=== PATIENT | male | born 1985 | race Caucasian/White ===

== ENCOUNTER 2016-12-02 21:35 | Inpatient (IN) | payer SELFPAY ==
[2016-12-02] MEDS ORDERED: METHYLPREDNISOLONE INJ 125 MG/2 ML SDV IV ONE (21:45)
[2016-12-02] MEDS ORDERED: IPRATROPIUM/ALBUTEROL 0.5-2.5 MG/3 ML AMPUL NEB ONE ×3 (21:45→23:10)
[2016-12-02] MEDS ORDERED: METHYLPREDNISOLONE INJ 125 MG/2 ML SDV ONE (21:46)
--- NOTE | 2016-12-02 21:49 | ER Document Report ---
ED General - General Stated Complaint: DIFFICULTY BREATHING Time seen by provider: 21:48 Mode of Arrival: Medic Information source: Patient Notes: This is a 31-year-old man with COPD who was brought in by EMS because of shortness of breath and wheezing. TRAVEL OUTSIDE OF THE [place] IN LAST 30 DAYS: No - HPI Onset: Yesterday Onset/Duration: Gradual Quality of pain: Dull Severity: Mild Pain Level: 1 Associated symptoms: Nonproductive cough, Shortness of breath. denies: Fever Exacerbated by: Movement, Walking Relieved by: Remaining still Similar symptoms previously: Yes Recently seen / treated by doctor: No - Related Data Allergies/Adverse Reactions: ketorolac tromethamine [From Toradol] Allergy (Verified 12/02/16 22:15) sulfamethoxazole [From Bactrim] Allergy (Verified 12/02/16 22:15) tramadol [Tramadol] Allergy (Verified 12/02/16 22:15) trimethoprim [From Bactrim] Allergy (Verified 12/02/16 22:15) methocarbamol [From Robaxin] Adverse Reaction (Verified 12/02/16 22:15) Hives Home Medications: Current Home Medications No Home Medications 12/02/16 [History] Past Medical History - General Information source: Patient - Social History Smoking Status: Former Smoker Cigarette use (# per day): No - patient states he quit Chew tobacco use (# tins/day): No Smoking Education Provided: No Frequency of alcohol use: None Drug Abuse: None Lives with: Alone Family History: Reviewed & Not Pertinent Patient has suicidal ideation: No Patient has homicidal ideation: No - Past Medical History Cardiac Medical History: Reports: Hx Heart Attack Neurological Medical History: Reports: Hx Cerebrovascular Accident Renal/ Medical History: Reports: Hx Kidney Stones - Immunizations Hx Diphtheria, Pertussis, Tetanus Vaccination: No Review of Systems - Review of Systems Notes: Review of systems: Constitutional: Denies fever, chills. EENT: Denies ear pain, sinus tenderness, throat pain, throat swelling. Cardiovascular: Denies chest pain, palpitations, dyspnea or edema. Respiratory: See H&P Abdomen: Denies abdominal pain, nausea, vomiting, diarrhea. Denies BRBPR or melena. Genitourinary: Denies dysuria, pyuria, hematuria, flank pain. Musculoskeletal: denies joint pain or swelling, denies back pain. Neurologic: Denies headache, photophobia, neck stiffness, weakness. Denies loss of bowel or bladder function. Denies saddle anesthesia. Skin: Denies rash, lesions. Physical Exam - Vital signs Vitals: Resp 18 12/02/16 21:35 Notes: Physical exam: GENERAL: 31-year-old man, alert and oriented 3, no acute distress HEAD: Atraumatic, normocephalic. EYES: Pupils equal round and reactive to light, extraocular movements intact, sclera anicteric, conjunctiva are normal. ENT: TMs normal, nares patent, oropharynx clear without exudates. Moist mucous membranes. NECK: Normal range of motion, supple without lymphadenopathy or JVD. LUNGS: Bilateral wheezing HEART: Regular rate and rhythm without murmurs, rubs or gallops. ABDOMEN: Soft, normoactive bowel sounds. No tenderness to palpation. No guarding, no rebound. No masses appreciated. EXTREMITIES: Normal range of motion, no pitting or edema. No clubbing or cyanosis. NEUROLOGICAL: Cranial nerves II through XII grossly intact. Normal speech, normal gait. PSYCH: Normal mood, normal affect. SKIN: Warm, Dry, normal turgor, no rashes or lesions noted. Course - Vital Signs Vital signs: Temp Pulse Resp BP Pulse Ox 99.1 F 24 H 142/82 H 96 12/02/16 21:43 12/02/16 22:01 12/02/16 22:00 12/02/16 22:01 - Laboratory Result Diagrams: 12/02/16 21:51 12/02/16 21:51 Laboratory results interpreted by me: 12/02/16 12/02/16 21:51 21:51 WBC 16.7 H Seg Neutrophils % 82.7 H Lymphocytes % 6.0 L Absolute Neutrophils 13.8 H Chloride 108 H Carbon Dioxide 20 L Glucose 118 H - Diagnostic Test Radiology reviewed: Image reviewed, Reports reviewed - This x-ray shows no infiltrates - EKG Interpretation by Me Rate: Tachycardia - EKG shows sinus tachycardia without any acute ST-T wave changes. Critical Care Note - Critical Care Note Total time excluding time spent on procedures (mins): 60 Discharge - Discharge Clinical Impression: acute COPD exacerbation Condition: Serious Disposition: ADMITTED INPATIENT Admitting Provider: Hospitalist - Dr. Tabares Unit Admitted: [facility]
[2016-12-02 22:02] LABS: ABSOLUTE BASOPHILS # (AUTO) 0.1 10^3/uL (0.0-0.2); ABSOLUTE EOSINOPHILS # (AUTO) 0.6 10^3/uL (0.0-0.6); ABSOLUTE MONOCYTES (AUTO) 1.2 10^3/uL (0.1-1.4); ABSOLUTE NEUT (AUTO) 13.8 10^3/uL (1.7-8.2); BASOPHILS % (AUTO) 0.4 % (0-2); EOSINOPHILS % (AUTO) 3.4 % (0-6); HEMATOCRIT 41.6 % (37.9-51.0); HEMOGLOBIN 14.4 g/dL (13.5-17.0); HGB HCT DIFFERENCE 1.6; MEAN CORPUSCULAR HEMOGLOBIN 31.2 pg (27.0-33.4); MEAN CORPUSCULAR HGB CONC 34.6 g/dL (32.0-36.0); MEAN CORPUSCULAR VOLUME 90 fl (80-97); MONOCYTES % (AUTO) 7.5 % (3-13); RED BLOOD COUNT 4.61 10^6/uL (4.35-5.55); RED CELL DISTRIBUTION WIDTH 13.8 % (11.5-14.0); SEGMENTED NEUTROPHILS % (AUTO) 82.7 % (42-78); WHITE BLOOD COUNT 16.7 10^3/uL (4.0-10.5)
[2016-12-02 22:27] LABS: ALANINE AMINOTRANSFERASE 59 U/L (21-72); ALBUMIN 4.1 g/dL (3.5-5.0); ALKALINE PHOSPHATASE 66 U/L (38-126); ANION GAP 14 (5-19); ASPARTATE AMINO TRANSFERASE 38 U/L (17-59); BILIRUBIN,DIRECT 0.3 mg/dL (0.0-0.4); BILIRUBIN,TOTAL 0.6 mg/dL (0.2-1.3); BLOOD UREA NITROGEN 13 mg/dL (7-20); CALCIUM 9.7 mg/dL (8.4-10.2); CARBON DIOXIDE 20 mmol/L (22-30); CHLORIDE 108 mmol/L (98-107); CREATININE RESULT 0.85 mg/dL (0.52-1.25); GLUCOSE 118 mg/dL (75-110); POTASSIUM 4.1 mmol/L (3.6-5.0); SODIUM 141.9 mmol/L (137-145); TOTAL PROTEIN 6.8 g/dL (6.3-8.2)
[2016-12-02] MEDS ORDERED: ALBUTEROL SULFATE 0.083% NEB 2.5 MG/3 ML AMPUL NEB ONE (22:45)
[2016-12-02] MEDS ORDERED: MAGNESIUM SULFATE/D5W 100 ML IV ONE (23:28)
[2016-12-02] MEDS ORDERED: CEFTRIAXONE 1 GM/D5W RTU 50 ML IV ONE (23:28)
[2016-12-02] MEDS ORDERED: ACETAMINOPHEN 325 MG TABLET PO ONE (23:39)
--- NOTE | 2016-12-02 23:56 | EKG REPORT ---
SEVERITY:- BORDERLINE ECG - SINUS TACHYCARDIA BORDERLINE LEFT AXIS DEVIATION BORDERLINE INFERIOR Q WAVES : Confirmed by: Sindy Díaz 02-Dec-2016 23:55:46
[2016-12-03] MEDS ORDERED: NICOTINE 7 MG/24 HR PATCH.TD24 TD PRN (01:57)
[2016-12-03] MEDS ORDERED: GUAIFENESIN SYRP 200 MG/10 ML UDC PO PRN (02:01)
[2016-12-03 02:14] LABS: ADD ON TESTING BLD IN LAB ACKNOWLEDGE
[2016-12-03] MEDS ORDERED: NORMAL SALINE 1000 ML 2,000 ML IV ONE (02:15)
[2016-12-03] MEDS ORDERED: AZITHROMYCIN INJ 500 MG VIAL IV PRN (02:21)
[2016-12-03 02:28] LABS: CREATINE KINASE 63 U/L (55-170); MAGNESIUM 2.1 mg/dL (1.6-2.3)
[2016-12-03 02:29] LABS: ALCOHOL < 10 mg/dL (NONE DETECTED)
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
[2016-12-03 02:36] LABS: VENOUS BLOOD BASE EXCESS -1.4 mmol/L; VENOUS BLOOD HCO3 24.2 mmol/L (20-32); VENOUS BLOOD PCO2 43.9 mmHg (35-63); VENOUS BLOOD PH 7.36 (7.30-7.42)
[2016-12-03 02:41] LABS: CREATINE KINASE MB 0.53 ng/mL (<4.55)
[2016-12-03 02:45] LABS: PROTHROMBIN TIME 12.5 SEC (11.4-15.4)
[2016-12-03 02:46] LABS: PARTIAL THROMBOPLASTIN TIME 28.2 SEC (23.5-35.8)
[2016-12-03 02:47] LABS: TROPONIN I < 0.012 ng/mL
[2016-12-03 03:46] LABS: URINE BARBITURATES SCREEN NEGATIVE; URINE METHADONE SCREEN NEGATIVE; URINE OPIATES LOW NEGATIVE; URINE PHENCYCLIDINE SCREEN NEGATIVE
[2016-12-03] MEDS: AZITHROMYCIN 500 MG in DEXTROSE 5%-WATER 250 ML IV SCH (04:24)
[2016-12-03] MEDS ORDERED: NORMAL SALINE 1000 ML 1,000 ML IV PRN (04:27)
[2016-12-03] MEDS: ALBUTEROL SULFATE 0.083% NEB 2.5 MG/3 ML AMPUL NEB PRN ×3 (04:36→23:26)
[2016-12-03 05:00] LABS: HEMATOCRIT 43.2 % (37.9-51.0); HEMOGLOBIN 14.6 g/dL (13.5-17.0); HGB HCT DIFFERENCE 0.6; MEAN CORPUSCULAR HEMOGLOBIN 30.9 pg (27.0-33.4); MEAN CORPUSCULAR HGB CONC 33.8 g/dL (32.0-36.0); MEAN CORPUSCULAR VOLUME 92 fl (80-97); RED BLOOD COUNT 4.72 10^6/uL (4.35-5.55); WHITE BLOOD COUNT 15.3 10^3/uL (4.0-10.5)
[2016-12-03 05:16] LABS: BLOOD UREA NITROGEN 12 mg/dL (7-20); CALCIUM 9.7 mg/dL (8.4-10.2); CARBON DIOXIDE 20 mmol/L (22-30); CHLORIDE 107 mmol/L (98-107); CREATININE RESULT 0.82 mg/dL (0.52-1.25); GLUCOSE 134 mg/dL (75-110); POTASSIUM 4.6 mmol/L (3.6-5.0)
[2016-12-03 05:25] LABS: ANION GAP 13 (5-19); SODIUM 140.3 mmol/L (137-145)
[2016-12-03 05:28] LABS: BASOPHILS % (MANUAL) 0 % (0-2); EOSINOPHILS % (MANUAL) 0 % (0-6); LYMPHOCYTES % (MANUAL) 4 % (13-45); TOTAL CELLS COUNTED 100
[2016-12-03 05:29] LABS: RBC MORPHOLOGY COMMENT NORMO-CYTIC/CHROMIC; TOXIC GRANULATION SLIGHT
[2016-12-03] MEDS: LANSOPRAZOLE 30 MG TAB.RAP.DR PO SCH (06:51)
[2016-12-03] MEDS: ACETAMINOPHEN 325 MG TABLET PO PRN (08:53)
[2016-12-03] MEDS: ENOXAPARIN SODIUM INJ 40 MG/0.4 ML DISP.SYRIN SUBCUT SCH (08:54)
[2016-12-03] MEDS: IPRATROPIUM/ALBUTEROL 0.5-2.5 MG/3 ML AMPUL NEB SCH ×3 (08:54→19:50)
[2016-12-03] MEDS ORDERED: CEFTRIAXONE 1 GM/D5W RTU 1 GM/50 ML RTUPB IV SCH (10:00)
[2016-12-03] MEDS: PREDNISONE 20 MG TABLET PO SCH (11:12)
[2016-12-03] MEDS: CEFEPIME 2 GM/D5W RTU 50 ML IV SCH ×2 (11:13→23:45)
--- NOTE | 2016-12-03 15:16 | PDOC PROGRESS REPORT ---
Subjective Progress Note for:: 12/03/16 Subjective:: Patient continues to have shortness of breath and cough. He has dyspnea with minimal exertion. He has nonspecific pain and states the Tylenol is not helping and he would like another medication. He states that he is allergic to Ultram, NSAIDs, Robaxin, and basically everything this not a narcotic. He claims of had multiple strokes and heart attacks the past in [place], however he has never had a cardiac catheterization before which I find unusual. He is in the process of applying for disability based on these medical problems. Patient denies fever, chills, headache, new focal weakness, chest pain, abdominal pain, nausea, vomiting, diarrhea, constipation. Physical Exam Vital Signs: Temp Pulse Resp BP Pulse Ox 98.3 F 119 H 22 H 129/73 H 98 12/03/16 13:40 12/03/16 14:20 12/03/16 14:20 12/03/16 13:30 12/03/16 14:20 GENERAL: No acute distress, ill appearing HEENT: Conjunctiva clear, nonicteric, moist mucous membranes, no JVD, midline trachea RESPIRATORY: Bilateral rhonchi in anterior lung bay CARDIAC: Regular rate and rhythm, no murmurs/gallops/rubs ABDOMEN: Soft, nondistended, nontender, positive bowel sounds, no rebound, no guarding EXTREMETIES: No edema, cyanosis, clubbing NEUROLOGIC: Alert, oriented to person/place/time, CN's grossly intact, no focal deficits SKIN: No rash, wounds PSYCH: Normal mood, normal affect Results Laboratory Results: 12/03/16 04:15 12/03/16 04:15 12/03/16 12/03/16 12/03/16 02:23 04:15 04:15 WBC 15.3 H RBC 4.72 Hgb 14.6 Hct 43.2 MCV 92 MCH 30.9 MCHC 33.8 RDW 14.0 Plt Count 362 Seg Neutrophils % Not Reportable Lymphocytes % Not Reportable Monocytes % Not Reportable Eosinophils % Not Reportable Basophils % Not Reportable Absolute Neutrophils Not Reportable Absolute Lymphocytes Not Reportable Absolute Monocytes Not Reportable Absolute Eosinophils Not Reportable Absolute Basophils Not Reportable VBG pH 7.36 VBG pCO2 43.9 VBG HCO3 24.2 VBG Base Excess -1.4 Sodium 140.3 Potassium 4.6 Chloride 107 Carbon Dioxide 20 L Anion Gap 13 BUN 12 Creatinine 0.82 Est GFR ( Amer) > 60 Est GFR (Non-Af Amer) > 60 Glucose 134 H Calcium 9.7 12/03/16 04:26 Sputum Gram Stain - Final 12/03/16 04:26 Sputum Sputum Culture - Final 12/03/16 12/03/16 04:15 11:04 Troponin I < 0.012 < 0.012 Impressions: Chest X-Ray 12/02/16 21:46 IMPRESSION: NO ACUTE RADIOGRAPHIC FINDING IN THE CHEST. Chest/Abdomen CTA 12/03/16 00:00 IMPRESSION: No evidence for pulmonary embolic disease. Patchy predominately upper lobe airspace consolidation most consistent with patchy pneumonic infiltrates. No pleural effusions are identified. Other findings as noted above. Assessment & Plan - Diagnosis (1) Pneumonia of both upper lobes Is this a current diagnosis for this admission?: YesPlan: Likely bacterial. Continue IV cefepime and azithromycin. Check blood and sputum cultures. (2) COPD exacerbation Is this a current diagnosis for this admission?: YesPlan: Continue prednisone and nebulizer treatments. (3) History of CVA (cerebrovascular accident) Is this a current diagnosis for this admission?: YesPlan: Patient claims of had multiple strokes in the past however he is only 31 years old and has no focal deficits. He is currently in the process of trying to get disability for this among other issues. I suspect there is a component of malingering. (4) History of DVT (deep vein thrombosis) Is this a current diagnosis for this admission?: YesPlan: Patient claims to have had multiple blood clots in his legs but does not take any blood thinning medications for this. CTA of his chest was negative for pulmonary embolism. We will continue Lovenox for routine DVT prophylaxis. (5) History of [place] (myocardial infarction) Is this a current diagnosis for this admission?: YesPlan: Patient claims to have had multiple heart attacks that have been evaluated in [place]. He has never had a cardiac catheterization which I find unusual under the circumstances. He is applying for disability for this as well as other circumstances and I suspect there is some malingering involved. (6) Noncompliance Is this a current diagnosis for this admission?: Yes (7) Tobacco dependency Is this a current diagnosis for this admission?: Yes - Time Time Spent with patient: 35 or more minutes Anticipated discharge: Home Within: within 48 hours
[2016-12-03] MEDS: OXYCODONE HCL IR 5 MG TABLET PO PRN (16:31)
[2016-12-03] MEDS ORDERED: CEFEPIME 2 GM/D5W RTU 2 GM/50 ML RTUPB IV ONE (23:35)
[2016-12-04] MEDS: OXYCODONE HCL IR 5 MG TABLET PO PRN ×3 (03:07→19:35)
[2016-12-04] MEDS: LANSOPRAZOLE 30 MG TAB.RAP.DR PO SCH (06:06)
[2016-12-04 06:41] LABS: HEMOGLOBIN 13.7 g/dL (13.5-17.0); HGB HCT DIFFERENCE 1.1; MEAN CORPUSCULAR HEMOGLOBIN 31.4 pg (27.0-33.4); MEAN CORPUSCULAR HGB CONC 34.3 g/dL (32.0-36.0); MEAN CORPUSCULAR VOLUME 92 fl (80-97); RED BLOOD COUNT 4.37 10^6/uL (4.35-5.55); RED CELL DISTRIBUTION WIDTH 14.1 % (11.5-14.0); WHITE BLOOD COUNT 23.5 10^3/uL (4.0-10.5)
[2016-12-04 06:48] LABS: ANION GAP 14 (5-19); BLOOD UREA NITROGEN 14 mg/dL (7-20); CALCIUM 9.5 mg/dL (8.4-10.2); CARBON DIOXIDE 22 mmol/L (22-30); CHLORIDE 106 mmol/L (98-107); CREATININE RESULT 0.85 mg/dL (0.52-1.25); GLUCOSE 89 mg/dL (75-110); POTASSIUM 4.6 mmol/L (3.6-5.0); SODIUM 142.3 mmol/L (137-145)
[2016-12-04 07:14] LABS: BASOPHILS % (MANUAL) 0 % (0-2); EOSINOPHILS % (MANUAL) 1 % (0-6); LYMPHOCYTES % (MANUAL) 12 % (13-45); TOTAL CELLS COUNTED 100
[2016-12-04 07:15] LABS: RBC MORPHOLOGY COMMENT NORMO-CYTIC/CHROMIC; TOXIC GRANULATION SLIGHT
[2016-12-04] MEDS: IPRATROPIUM/ALBUTEROL 0.5-2.5 MG/3 ML AMPUL NEB SCH ×3 (07:38→19:52)
[2016-12-04] MEDS: PREDNISONE 20 MG TABLET PO SCH (09:32)
[2016-12-04] MEDS: CEFEPIME HCL 2 GM in DEXTROSE 5%-WATER 100 ML IV SCH (09:32)
[2016-12-04] MEDS: ENOXAPARIN SODIUM INJ 40 MG/0.4 ML DISP.SYRIN SUBCUT SCH (09:33)
[2016-12-04] MEDS ORDERED: VANCOMYCIN HCL 0 MG in DEXTROSE 5%-WATER 250 ML IV NR (10:00)
[2016-12-04] MEDS ORDERED: GUAIFENESIN 600 MG TABLET.SA PO ONE (11:30)
[2016-12-04] MEDS: ALBUTEROL SULFATE 0.083% NEB 2.5 MG/3 ML AMPUL NEB PRN (12:06)
[2016-12-04] MEDS: VANCOMYCIN HCL 1,500 MG in DEXTROSE 5%-WATER 250 ML IV SCH (13:57)
--- NOTE | 2016-12-04 17:20 | PDOC PROGRESS REPORT ---
Subjective Progress Note for:: 12/04/16 Subjective:: Patient continues to have cough, shortness of breath, generalized weakness/ malaise. Patient denies fever, chills, headache, new focal weakness, chest pain , abdominal pain, nausea, vomiting, diarrhea, constipation. Physical Exam Vital Signs: Temp Pulse Resp BP Pulse Ox 98.9 F 93 20 114/81 99 12/04/16 16:00 12/04/16 16:00 12/04/16 16:00 12/04/16 16:00 12/04/16 16:00 Intake & Output 12/03/16 12/04/16 12/05/16 06:59 06:59 06:59 Intake Total 73 Balance 73 Weight 101.1 kg GENERAL: No acute distress, ill appearing HEENT: Conjunctiva clear, nonicteric, moist mucous membranes, no JVD, midline trachea RESPIRATORY: Bilateral rhonchi/wheezes CARDIAC: Regular rate and rhythm, no murmurs/gallops/rubs ABDOMEN: Soft, nondistended, nontender, positive bowel sounds, no rebound, no guarding EXTREMETIES: No edema, cyanosis, clubbing NEUROLOGIC: Alert, oriented to person/place/time, CN's grossly intact, no focal deficits SKIN: No rash, wounds PSYCH: Normal mood, normal affect Results Laboratory Results: 12/04/16 05:42 12/04/16 05:42 12/04/16 12/04/16 05:42 05:42 WBC 23.5 H RBC 4.37 Hgb 13.7 Hct 40.0 MCV 92 MCH 31.4 MCHC 34.3 RDW 14.1 H Plt Count 360 Seg Neutrophils % Not Reportable Lymphocytes % Not Reportable Monocytes % Not Reportable Eosinophils % Not Reportable Basophils % Not Reportable Absolute Neutrophils Not Reportable Absolute Lymphocytes Not Reportable Absolute Monocytes Not Reportable Absolute Eosinophils Not Reportable Absolute Basophils Not Reportable Sodium 142.3 Potassium 4.6 Chloride 106 Carbon Dioxide 22 Anion Gap 14 BUN 14 Creatinine 0.85 Est GFR ( Amer) > 60 Est GFR (Non-Af Amer) > 60 Glucose 89 Calcium 9.5 12/03/16 12/03/16 04:15 11:04 Troponin I < 0.012 < 0.012 Impressions: Chest X-Ray 12/02/16 21:46 IMPRESSION: NO ACUTE RADIOGRAPHIC FINDING IN THE CHEST. Chest/Abdomen CTA 12/03/16 00:00 IMPRESSION: No evidence for pulmonary embolic disease. Patchy predominately upper lobe airspace consolidation most consistent with patchy pneumonic infiltrates. No pleural effusions are identified. Other findings as noted above. Assessment & Plan - Diagnosis (1) Pneumonia of both upper lobes Is this a current diagnosis for this admission?: YesPlan: Likely bacterial. Continue IV cefepime and IV azithromycin. I would also like to add IV vancomycin given worsening leukocytosis. Awaiting blood culture and sputum culture. (2) COPD exacerbation Is this a current diagnosis for this admission?: YesPlan: Continue prednisone and nebulizer treatments. Continue prednisone. Continue scheduled nebs and when necessary albuterol. (3) History of CVA (cerebrovascular accident) Is this a current diagnosis for this admission?: YesPlan: Patient claims of had multiple strokes in the past however he is only 31 years old and has no focal deficits. He is currently in the process of trying to get disability for this among other issues. I suspect there is a component of malingering. (4) History of DVT (deep vein thrombosis) Is this a current diagnosis for this admission?: YesPlan: Patient claims to have had multiple blood clots in his legs but does not take any blood thinning medications for this. CTA of his chest was negative for pulmonary embolism. Xarelto for routine DVT prophylaxis. (5) History of [place] (myocardial infarction) Is this a current diagnosis for this admission?: YesPlan: Patient claims to have had multiple heart attacks that have been evaluated in [place]. He has never had a cardiac catheterization which I find unusual under the circumstances. He is applying for disability for this as well as other circumstances and I suspect there is some malingering involved. (6) Noncompliance Is this a current diagnosis for this admission?: Yes (7) Tobacco dependency Is this a current diagnosis for this admission?: Yes - Time Time Spent with patient: 35 or more minutes Anticipated discharge: Home Within: within 72 hours
[2016-12-04] MEDS: GUAIFENESIN 600 MG TABLET.SA PO SCH (21:31)
[2016-12-04] MEDS: RIVAROXABAN 10 MG TABLET PO SCH (21:32)
[2016-12-04] MEDS: AZITHROMYCIN 500 MG in DEXTROSE 5%-WATER 250 ML IV SCH (21:34)
[2016-12-05] MEDS ORDERED: NICOTINE 21 MG/24 HR PATCH.TD24 TD ONE (00:30)
[2016-12-05] MEDS: VANCOMYCIN HCL 1,500 MG in DEXTROSE 5%-WATER 250 ML IV SCH ×3 (02:12→14:48)
[2016-12-05] MEDS: OXYCODONE HCL IR 5 MG TABLET PO PRN ×3 (02:14→17:52)
[2016-12-05] MEDS: ALBUTEROL SULFATE 0.083% NEB 2.5 MG/3 ML AMPUL NEB PRN (04:23)
[2016-12-05] MEDS: CEFEPIME HCL 2 GM in DEXTROSE 5%-WATER 100 ML IV SCH ×3 (05:04→21:30)
[2016-12-05] MEDS: LANSOPRAZOLE 30 MG TAB.RAP.DR PO SCH (05:04)
[2016-12-05] MEDS: ACETAMINOPHEN 325 MG TABLET PO PRN ×2 (05:08→21:30)
[2016-12-05 06:06] LABS: ABSOLUTE BASOPHILS # (AUTO) 0.1 10^3/uL (0.0-0.2); ABSOLUTE EOSINOPHILS # (AUTO) 0.2 10^3/uL (0.0-0.6); ABSOLUTE LYMPHOCYTES (AUTO) 2.9 10^3/uL (0.5-4.7); ABSOLUTE MONOCYTES (AUTO) 1.2 10^3/uL (0.1-1.4); ABSOLUTE NEUT (AUTO) 10.4 10^3/uL (1.7-8.2); BASOPHILS % (AUTO) 0.5 % (0-2); EOSINOPHILS % (AUTO) 1.5 % (0-6); HEMATOCRIT 38.9 % (37.9-51.0); HEMOGLOBIN 13.5 g/dL (13.5-17.0); HGB HCT DIFFERENCE 1.6; LYMPHOCYTES % (AUTO) 19.7 % (13-45); MEAN CORPUSCULAR HEMOGLOBIN 31.3 pg (27.0-33.4); MEAN CORPUSCULAR HGB CONC 34.7 g/dL (32.0-36.0); MEAN CORPUSCULAR VOLUME 90 fl (80-97); RED BLOOD COUNT 4.31 10^6/uL (4.35-5.55); SEGMENTED NEUTROPHILS % (AUTO) 70.3 % (42-78); WHITE BLOOD COUNT 14.8 10^3/uL (4.0-10.5)
[2016-12-05 06:16] LABS: ANION GAP 12 (5-19); BLOOD UREA NITROGEN 16 mg/dL (7-20); CALCIUM 9.2 mg/dL (8.4-10.2); CARBON DIOXIDE 25 mmol/L (22-30); CHLORIDE 104 mmol/L (98-107); GLUCOSE 93 mg/dL (75-110); POTASSIUM 3.9 mmol/L (3.6-5.0); SODIUM 141.4 mmol/L (137-145)
[2016-12-05] MEDS: IPRATROPIUM/ALBUTEROL 0.5-2.5 MG/3 ML AMPUL NEB SCH ×3 (07:48→19:54)
[2016-12-05] MEDS: PREDNISONE 20 MG TABLET PO SCH (09:02)
[2016-12-05] MEDS: GUAIFENESIN 600 MG TABLET.SA PO SCH ×2 (09:02→21:30)
[2016-12-05] MEDS: NICOTINE 21 MG/24 HR PATCH.TD24 TD SCH (09:03)
[2016-12-05 14:47] LABS: CREATININE RESULT 0.95 mg/dL (0.52-1.25)
--- NOTE | 2016-12-05 17:15 | PDOC PROGRESS REPORT ---
Subjective Progress Note for:: 12/05/16 Subjective:: The patient was seen earlier today on rounds. The patient's history was consistent with a ring positive review of systems. The patient stated that he had had an increase in his oxygen demand although there've been no reported episodes of hypoxia or tachypnea. Patient states that he feels worse now than when he was admitted. The patient states that he is too weak to even get out of the bed. Physical Exam Vital Signs: Temp Pulse Resp BP Pulse Ox 97.9 F 101 H 18 137/69 H 95 12/05/16 16:08 12/05/16 16:08 12/05/16 16:08 12/05/16 16:08 12/05/16 16:08 Intake & Output 12/03/16 12/04/16 12/05/16 23:59 23:59 23:59 Intake Total 333 1980 Balance 333 1979 Weight 101.1 kg General appearance: PRESENT: no acute distress, cooperative, well-developed, well-nourished Head exam: PRESENT: atraumatic, normocephalic Eye exam: PRESENT: conjunctiva pink, EOMI, PERRLA. ABSENT: scleral icterus Ear exam: PRESENT: normal external ear exam Mouth exam: PRESENT: moist, tongue midline Neck exam: ABSENT: carotid bruit, JVD, lymphadenopathy, thyromegaly Respiratory exam: PRESENT: clear to auscultation amanda, symmetrical, unlabored. ABSENT: rales, rhonchi, tachypnea, wheezes Cardiovascular exam: PRESENT: RRR. ABSENT: diastolic murmur, rubs, systolic murmur Pulses: PRESENT: normal dorsalis pedis pul Vascular exam: PRESENT: normal capillary refill GI/Abdominal exam: PRESENT: normal bowel sounds, soft. ABSENT: distended, guarding, mass, organolmegaly, rebound, tenderness Rectal exam: PRESENT: deferred Extremities exam: PRESENT: full ROM. ABSENT: calf tenderness, clubbing, pedal edema Neurological exam: PRESENT: alert, awake, oriented to person, oriented to place , oriented to time, oriented to situation, CN II-XII grossly intact. ABSENT: motor sensory deficit Psychiatric exam: PRESENT: normal mood, unusual affect. ABSENT: homicidal ideation, suicidal ideation Skin exam: PRESENT: dry, intact, warm. ABSENT: cyanosis, rash Results Laboratory Results: 12/05/16 05:48 04/12/17 13:43 12/05/16 12/05/16 12/05/16 05:48 05:48 13:43 WBC 14.8 H RBC 4.31 L Hgb 13.5 Hct 38.9 MCV 90 MCH 31.3 MCHC 34.7 RDW 14.0 Plt Count 361 Seg Neutrophils % 70.3 Lymphocytes % 19.7 Monocytes % 8.0 Eosinophils % 1.5 Basophils % 0.5 Absolute Neutrophils 10.4 H Absolute Lymphocytes 2.9 Absolute Monocytes 1.2 Absolute Eosinophils 0.2 Absolute Basophils 0.1 Sodium 141.4 Potassium 3.9 Chloride 104 Carbon Dioxide 25 Anion Gap 12 BUN 16 Creatinine 0.90 0.95 Est GFR ( Amer) > 60 > 60 Est GFR (Non-Af Amer) > 60 > 60 Glucose 93 Calcium 9.2 12/03/16 12/03/16 04:15 11:04 Troponin I < 0.012 < 0.012 Impressions: Chest/Abdomen CTA 12/03/16 00:00 IMPRESSION: No evidence for pulmonary embolic disease. Patchy predominately upper lobe airspace consolidation most consistent with patchy pneumonic infiltrates. No pleural effusions are identified. Other findings as noted above. Chest X-Ray 12/05/16 06:00 IMPRESSION: Persistent patchy left apical airspace disease, similar compared to CT chest 12/03/2016 Assessment & Plan - Diagnosis (1) Pneumonia of both upper lobes Qualifiers: Pneumonia type: due to unspecified organism Qualified Code(s): J18.9 - Pneumonia, unspecified organism Is this a current diagnosis for this admission?: Yes (2) COPD exacerbation Is this a current diagnosis for this admission?: YesPlan: Will obtain ambulating oxygen saturation. (3) History of CVA (cerebrovascular accident) Is this a current diagnosis for this admission?: YesPlan: The patient has evidence of deficit to support this claim (4) History of DVT (deep vein thrombosis) Is this a current diagnosis for this admission?: YesPlan: The patient was not on chronic anticoagulation therapy, has not been seen by hematology, there are no records show support this claim. (5) History of [place] (myocardial infarction) Is this a current diagnosis for this admission?: YesPlan: The patient has never had a heart catheter. No documented evidence or records to support this claim. (6) Noncompliance Is this a current diagnosis for this admission?: Yes (7) Tobacco dependency Is this a current diagnosis for this admission?: Yes - Time Time Spent with patient: 25-34 minutes Medications reviewed and adjusted accordingly: Yes Anticipated discharge: Home Within: within 24 hours
[2016-12-05] MEDS: RIVAROXABAN 10 MG TABLET PO SCH (21:30)
[2016-12-05] MEDS: AZITHROMYCIN 500 MG in DEXTROSE 5%-WATER 250 ML IV SCH (22:57)
[2016-12-05] MEDS: VANCOMYCIN HCL 1,250 MG in DEXTROSE 5%-WATER 250 ML IV SCH (22:58)
[2016-12-06] MEDS: OXYCODONE HCL IR 5 MG TABLET PO PRN ×2 (01:14→09:40)
[2016-12-06] MEDS: ALBUTEROL SULFATE 0.083% NEB 2.5 MG/3 ML AMPUL NEB PRN (01:16)
[2016-12-06] MEDS: LANSOPRAZOLE 30 MG TAB.RAP.DR PO SCH (06:52)
[2016-12-06] MEDS: VANCOMYCIN HCL 1,250 MG in DEXTROSE 5%-WATER 250 ML IV SCH (06:52)
[2016-12-06] MEDS: IPRATROPIUM/ALBUTEROL 0.5-2.5 MG/3 ML AMPUL NEB SCH (07:54)
[2016-12-06] MEDS: CEFEPIME HCL 2 GM in DEXTROSE 5%-WATER 100 ML IV SCH (09:40)
[2016-12-06] MEDS: PREDNISONE 20 MG TABLET PO SCH (09:41)
[2016-12-06] MEDS: GUAIFENESIN 600 MG TABLET.SA PO SCH (09:41)
[2016-12-06] MEDS: NICOTINE 21 MG/24 HR PATCH.TD24 TD SCH (09:41)
[2016-12-06 12:56] VITALS: BP 117/70
[2016-12-06] MEDS ORDERED: AZITHROMYCIN 250 MG TABLET PO SCH (22:00)
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
== END 2016-12-06 13:55 | disposition home or self-care (01) | DRG 190 ==
LOC: ER 21:35 → UNDOADMIN 12-03 00:10 → EH 12-03 00:10 → 5 12-03 21:50
PROVIDERS: ADMIT Family Medicine; ATTEND Family Medicine
PROC: 3E0F73Z Introduction of Anti-inflammatory into Respiratory Tract, Via Natural or Artificial Opening (ICD-10-PCS; principal; 2016-12-03)
DX: J44.0 Chronic obstructive pulmonary disease with (acute) lower respiratory infection (principal); J15.9 Unspecified bacterial pneumonia; J44.1 Chronic obstructive pulmonary disease with (acute) exacerbation; F41.1 Generalized anxiety disorder; M19.90 Unspecified osteoarthritis, unspecified site; I25.10 Atherosclerotic heart disease of native coronary artery without angina pectoris; K76.0 Fatty (change of) liver, not elsewhere classified; F17.210 Nicotine dependence, cigarettes, uncomplicated; I25.2 Old myocardial infarction; R07.2 Precordial pain; Z91.19 Patient's noncompliance with other medical treatment and regimen; Z86.718 Personal history of other venous thrombosis and embolism; Z59.9 Problem related to housing and economic circumstances, unspecified; Z86.73 Personal history of transient ischemic attack (TIA), and cerebral infarction without residual deficits; Z87.11 Personal history of peptic ulcer disease; Z88.8 Allergy status to other drugs, medicaments and biological substances; Z88.6 Allergy status to analgesic agent; Z88.3 Allergy status to other anti-infective agents
CPT/HCPCS: 36415; 71010; 71275; 80048; 80053; 80202; 80307; 82550; 82553; 82565; 82803; 83735; 84484; 85025; 85610; 85730; 87040; 87205; 87804; 93005; 93010; 94640; 94799; 96365; 96368; 96375; 99291; J0456; J0692; J0696; J1650; J2930; J3370; J3475; J3490; J7030; J7060; J7512; J7620

== ENCOUNTER 2016-12-20 16:43 | Emergency (ER) | payer SELFPAY ==
--- NOTE | 2016-12-20 18:16 | ER Document Report ---
ED General - General Mode of Arrival: Ambulatory Information source: Patient TRAVEL OUTSIDE OF THE [place] IN LAST 30 DAYS: No - HPI Onset: Other - see HPI note Similar symptoms previously: Yes Recently seen / treated by doctor: Yes - General Chief Complaint: Breathing Difficulty Stated Complaint: DIFFICULTY BREATHING Notes: Patient is a 31-year-old male presenting to emergency department for difficulty breathing. Patient was recently discharged from hospital for asthma, COPD exacerbation. Patient states that he went home and still felt bad. Patient states he's had some chills and sweats and he has not been able sleep well. Patient was stressed follow-up at the clinic, but he states he missed his appointment is not having a reliable ride. Patient states he has another appointment with the clinic on 12/27/2016. Patient states that he had stopped smoking was doing E cigarettes; he is now smoking 1 cigarette per day. Smoking and COPD discussions have occurred multiple times with this patient. Patient states he nebulizer treatment 4 times a day. (JUAN MEHTA) - Related Data Allergies/Adverse Reactions: ketorolac tromethamine [From Toradol] Allergy (Verified 12/20/16 18:09) sulfamethoxazole [From Bactrim] Allergy (Verified 12/20/16 18:09) tramadol [Tramadol] Allergy (Verified 12/20/16 18:09) trimethoprim [From Bactrim] Allergy (Verified 12/20/16 18:09) methocarbamol [From Robaxin] Adverse Reaction (Verified 12/20/16 18:09) Hives Past Medical History - General Information source: Patient - Social History Smoking Status: Current Every Day Smoker Cigarette use (# per day): Yes Family History: None Patient has suicidal ideation: No Patient has homicidal ideation: No - Past Medical History Cardiac Medical History: Reports: Hx Coronary Artery Disease, Hx DVT - Multiple ; last 2014. Took himself off his systemic anticoagulant., Hx Heart Attack - September 2014. Pulmonary Medical History: Reports: Hx Asthma, Hx COPD Neurological Medical History: Reports: Hx Cerebrovascular Accident Renal/ Medical History: Reports: Hx Kidney Stones Musculoskeltal Medical History: Reports Hx Arthritis Past Surgical History: Reports: Hx Orthopedic Surgery - Knee and toe, Other - Dental surgery - Immunizations Hx Diphtheria, Pertussis, Tetanus Vaccination: No Review of Systems - Review of Systems Constitutional: No symptoms reported EENT: No symptoms reported Cardiovascular: No symptoms reported Respiratory: See HPI Gastrointestinal: No symptoms reported Genitourinary: No symptoms reported Male Genitourinary: No symptoms reported Musculoskeletal: No symptoms reported Skin: No symptoms reported Hematologic/Lymphatic: No symptoms reported Neurological/Psychological: No symptoms reported -: Yes All other systems reviewed and negative Physical Exam - Vital signs Interpretation: Normal - General General appearance: Appears well, Alert In distress: Mild - HEENT Head: Normocephalic, Atraumatic Eyes: Normal Pupils: PERRL Mucous membranes: Moist - Respiratory Respiratory status: No respiratory distress Chest status: Nontender Breath sounds: Normal Chest palpation: Normal - Cardiovascular Rhythm: Regular Heart sounds: Normal auscultation Murmur: No - Abdominal Inspection: Normal Distension: No distension Bowel sounds: Normal Tenderness: Nontender Organomegaly: No organomegaly - Back Back: Normal, Nontender - Extremities General upper extremity: Normal inspection, Normal ROM, Normal strength General lower extremity: Normal inspection, Normal ROM, Normal strength - Neurological Neuro grossly intact: Yes Cognition: Normal Orientation: AAOx4 [place] Coma Scale Eye Opening: Spontaneous [place] Coma Scale Verbal: Oriented [place] Coma Scale Motor: Obeys Commands [place] Coma Scale Total: 15 Speech: Normal - Psychological Associated symptoms: Normal affect, Normal mood - Skin Skin Temperature: Warm Skin Moisture: Dry Course - Re-evaluation Re-evalutation: 12/20/16 18:17 Patient presents to the emergency department with a chief complaint difficulty breathing and pain when he takes a deep breath. He was hospitalized has an extensive medical record including possible early COPD during that record the hospitalist no studies that he requested narcotics on numerous occasions and they denied him. He is again requesting something for pain here for his breathing. On examination is well-appearing nontoxic in no acute distress he is not tachypneic or tachycardic he is afebrile and satting 98% on room air. His lungs are completely clear reason no respiratory distress. He missed his follow- up appointments he didn't have a ride. If chest x-ray is negative going to discharge him follow primary care physician there is nothing here that warrants any pain medication or additional treatment. As he is in no acute distress. No focal concerns for myocardial infarction. Patient denies any chest pain pressure exertion diaphoresis syncope or near-syncope. 12/20/16 18:56 Patient tech sting in no acute distress no coughing no shortness of breath chest x-ray is negative. A discharge and follow-up with his primary care physician he missed an appointment home to keep that she needs referral to a specialist they can do that. No acute physical findings on examination denied requests for pain medication not appropriate for primary care physician 2-3 days and discussed reasons for ED return sooner (GEORGE MCDANIEL) - Vital Signs Vital signs: Temp Pulse Resp BP Pulse Ox 97.6 F 83 20 120/82 98 12/20/16 19:13 12/20/16 19:13 12/20/16 19:13 12/20/16 19:13 12/20/16 19:13 Discharge - Discharge Clinical Impression: Weakness Fatigue Qualifiers: Fatigue type: unspecified Qualified Code(s): R53.83 - Other fatigue Condition: Stable Disposition: HOME, SELF-CARE Additional Instructions: Weakness/ fatigue We did not find a definite cause for your weakness. This may require further medical tests. Weakness can be caused by infection, physical exhaustion , rapid weight loss, dehydration, or medicine side effects. Diseases of the muscles, heart, nerves, and blood vessels can make you weak. Sometimes the problem is simply depression or lack of exercise. You should get plenty of rest. Unless the doctor tells you otherwise, it's usually best to add short periods of regular mild exercise. Eat a nutritious diet with multiple small, low-sugar meals. If symptoms continue, additional medical evaluation will be necessary. Be sure to follow up as instructed. If you become very dizzy, nauseated, or feel like you're going to faint, lie down right away. Wait until the symptoms have passed before you get up again. Stand up slowly. Call the doctor or return if you develop chest pain, abdominal pain, severe headache, irregular heartbeat or very fast pulse, confusion, vision problems, fever, muscular pain, or any other new symptom. Forms: Smoking Cessation Education Referrals: [facility] [Provider Group] - Follow up in 3-5 days (Final point be seen in 2-3 days return for increasing worsening or new symptoms) Scribe Attestation: 12/20/16 18:58 I personally performed the services described in the documentation reviewed the documentation recorded by my scribe in my presence and it accurately and completely records my words and actions (GEORGE MCDANIEL) Scribe Documentation - Scribe Written by Scribe:: Juan Mehta 12/20/16 18:44 acting as scribe for :: Lopez
[2016-12-20 19:15] VITALS: BP 120/82
== END 2016-12-20 19:17 | disposition home or self-care (01) ==
LOC: ER 16:43
DX: R53.1 Weakness (principal); R53.83 Other fatigue; R06.02 Shortness of breath; J44.1 Chronic obstructive pulmonary disease with (acute) exacerbation; F17.210 Nicotine dependence, cigarettes, uncomplicated
CPT/HCPCS: 71020; 99284

== ENCOUNTER 2017-05-03 11:40 | Emergency (ER) | payer BC, MEDICAID ==
[2017-05-03] MEDS ORDERED: IPRATROPIUM/ALBUTEROL 0.5-2.5 MG/3 ML AMPUL NEB ONE (11:46)
[2017-05-03] MEDS ORDERED: ALBUTEROL SULFATE 0.083% NEB 2.5 MG/3 ML AMPUL NEB ONE ×2 (11:46→12:41)
--- NOTE | 2017-05-03 11:58 | ER Document Report ---
ED Respiratory Problem - General Chief Complaint: Asthma Exacerbation Stated Complaint: DIFFICULTY BREATHING Time Seen by Provider: 05/03/17 11:43 Mode of Arrival: Stretcher Information source: Patient, Emergency Med Personnel TRAVEL OUTSIDE OF THE [place] IN LAST 30 DAYS: No - HPI Patient complains to provider of: Asthma, Cough, Short of breath Onset: Yesterday Duration: Worse/persistent Context: Hx asthma, Hx COPD, Smoker Short of Breath: Moderate Chest pain/discomfort: Tightness Cough: Productive Sputum amount: Small Sputum color: Yellow Sputum consistency: Mucoid At home treatment: Bronchodilators EMS treatments: Bronchodilators Associated symptoms: Congestion, Cough, Difficulty breathing, Short of breath, Wheezing Similar symptoms previously: Yes Recently seen / treated by doctor: Yes Notes: Patient is a 31-year-old male with a history of asthma, COPD, ID at the age of 26 that was treated in [place], who is a smoker, presenting to the emergency room via EMS for difficulty breathing with wheezing and cough productive of his small amount of yellow mucus, he denies any fever, patient does report having several pets including cats and dogs, his clothing is covered with pet hair and he does smell like cats - Related Data Allergies/Adverse Reactions: ketorolac tromethamine [From Toradol] Allergy (Verified 12/20/16 18:09) sulfamethoxazole [From Bactrim] Allergy (Verified 12/20/16 18:09) tramadol [Tramadol] Allergy (Verified 12/20/16 18:09) trimethoprim [From Bactrim] Allergy (Verified 12/20/16 18:09) methocarbamol [From Robaxin] Adverse Reaction (Verified 12/20/16 18:09) Hives Past Medical History - General Information source: Patient - Social History Smoking Status: Current Every Day Smoker Family History: None - Past Medical History Cardiac Medical History: Reports: Hx Coronary Artery Disease, Hx DVT - Multiple ; last 2014. Took himself off his systemic anticoagulant., Hx Heart Attack - September 2014. Denies: Hx Hypercholesterolemia, Hx Pulmonary Embolism Pulmonary Medical History: Reports: Hx Asthma, Hx COPD Neurological Medical History: Reports: Hx Cerebrovascular Accident. Denies: Hx Seizures Endocrine Medical History: Denies: Hx Diabetes Mellitus Type 1, Hx Diabetes Mellitus Type 2, Hx Hyperthyroidism, Hx Hypothyroidism Renal/ Medical History: Reports: Hx Kidney Stones. Denies: Hx Peritoneal Dialysis GI Medical History: Denies: Hx Cirrhosis, Hx Gastroesophageal Reflux Disease, Hx Hepatitis Musculoskeltal Medical History: Reports Hx Arthritis Psychiatric Medical History: Denies: Hx Depression Infectious Medical History: Denies: Hx Hepatitis Past Surgical History: Reports: Hx Orthopedic Surgery - Knee and toe, Other - Dental surgery - Immunizations Hx Diphtheria, Pertussis, Tetanus Vaccination: No Review of Systems - Review of Systems Constitutional: No symptoms reported EENT: No symptoms reported Cardiovascular: No symptoms reported Respiratory: See HPI Gastrointestinal: No symptoms reported Genitourinary: No symptoms reported Male Genitourinary: No symptoms reported Musculoskeletal: No symptoms reported Skin: No symptoms reported Hematologic/Lymphatic: No symptoms reported Neurological/Psychological: No symptoms reported -: Yes All other systems reviewed and negative Physical Exam - Vital signs Vitals: Resp 23 H 05/03/17 11:55 Interpretation: Tachypneic - General General appearance: Alert In distress: Mild - HEENT Head: Normocephalic, Atraumatic Eyes: Normal Pupils: PERRL - Respiratory Respiratory status: Tachypnea Chest status: Nontender Breath sounds: Productive cough, Wheezing Chest palpation: Normal - Cardiovascular Rhythm: Regular Heart sounds: Normal auscultation Murmur: No - Abdominal Inspection: Normal Distension: No distension Bowel sounds: Normal Tenderness: Nontender Organomegaly: No organomegaly - Back Back: Normal, Nontender - Extremities General upper extremity: Normal inspection, Nontender, Normal color, Normal ROM , Normal temperature General lower extremity: Normal inspection, Nontender, Normal color, Normal ROM , Normal temperature, Normal weight bearing. No: Dwight's sign - Neurological Neuro grossly intact: Yes Cognition: Normal Orientation: AAOx4 [place] Coma Scale Eye Opening: Spontaneous [place] Coma Scale Verbal: Oriented [place] Coma Scale Motor: Obeys Commands [place] Coma Scale Total: 15 Speech: Normal Motor strength normal: LUE, RUE, LLE, RLE Sensory: Normal - Psychological Associated symptoms: Normal affect, Normal mood - Skin Skin Temperature: Warm Skin Moisture: Dry Skin Color: Normal Course - Re-evaluation Re-evalutation: 05/03/17 13:59 Patient resting comfortably, breathing sounds are improved significantly, he does continue to have a mild wheeze at the end of exhalation, however he is moving much more air, vital signs have been stable with mild tachycardia from repeated albuterol treatments, however his pulse ox has been 98-100% on room air the whole time, he is in no acute distress, patient does have mild leukocytosis and signs of probable bronchitis exacerbating his underlying asthma , he will be discharged with antibiotics, prednisone, and albuterol inhaler, advised to follow-up with a primary care provider, quit smoking, I did also discuss with him the possibility of his pets being an asthma trigger as he was covered in dog hair when he arrived and he also smells of dogs, patient acknowledges understanding and agreement with this plan - Vital Signs Vital signs: Temp Pulse Resp BP Pulse Ox 26 H 131/83 H 98 05/03/17 13:00 05/03/17 13:00 05/03/17 13:00 - Laboratory Result Diagrams: 05/03/17 11:49 05/03/17 11:49 Laboratory results interpreted by me: 05/03/17 11:49 WBC 16.0 H Seg Neutrophils % 83.0 H Lymphocytes % 7.8 L Absolute Neutrophils 13.3 H - Diagnostic Test Radiology reviewed: Image reviewed, Reports reviewed Discharge - Discharge Clinical Impression: Tobacco dependency, COPD exacerbation Acute bronchitis Qualifiers: Bronchitis organism: unspecified organism Qualified Code(s): J20.9 - Acute bronchitis, unspecified Condition: Stable Disposition: HOME, SELF-CARE Instructions: Inhaled Bronchodilators ([facility]), Azithromycin ([facility]), Asthma ([facility]), Stop Smoking ([facility]) Additional Instructions: Follow up with your primary care provider in one to 2 days. Return to the emergency room immediately if symptoms worsen or any additional concerns. Prescriptions: Albuterol Sulfate [Proair HFA Inhalation Aerosol 8.5 gm MDI] 1 puff IH Q4 PRN # 1 mdi PRN Reason: Azithromycin [Zithromax 250 mg Tablet] 250 mg PO ASDIR PRN #6 tablet PRN Reason: Prednisone 40 mg PO DAILY #8 tablet
[2017-05-03 12:00] LABS: ABSOLUTE BASOPHILS # (AUTO) 0.1 10^3/uL (0.0-0.2); ABSOLUTE EOSINOPHILS # (AUTO) 0.4 10^3/uL (0.0-0.6); ABSOLUTE LYMPHOCYTES (AUTO) 1.3 10^3/uL (0.5-4.7); ABSOLUTE NEUT (AUTO) 13.3 10^3/uL (1.7-8.2); BASOPHILS % (AUTO) 0.3 % (0-2); EOSINOPHILS % (AUTO) 2.8 % (0-6); HEMATOCRIT 45.3 % (37.9-51.0); HEMOGLOBIN 15.1 g/dL (13.5-17.0); LYMPHOCYTES % (AUTO) 7.8 % (13-45); MEAN CORPUSCULAR HEMOGLOBIN 30.6 pg (27.0-33.4); MEAN CORPUSCULAR HGB CONC 33.4 g/dL (32.0-36.0); MEAN CORPUSCULAR VOLUME 92 fl (80-97); MONOCYTES % (AUTO) 6.1 % (3-13); RED BLOOD COUNT 4.93 10^6/uL (4.35-5.55); RED CELL DISTRIBUTION WIDTH 13.3 % (11.5-14.0)
[2017-05-03 12:20] LABS: ALANINE AMINOTRANSFERASE 26 U/L (21-72); ALBUMIN 4.3 g/dL (3.5-5.0); ALKALINE PHOSPHATASE 77 U/L (38-126); ANION GAP 9 (5-19); ASPARTATE AMINO TRANSFERASE 28 U/L (17-59); BILIRUBIN,DIRECT 0.3 mg/dL (0.0-0.4); BILIRUBIN,TOTAL 0.7 mg/dL (0.2-1.3); BLOOD UREA NITROGEN 11 mg/dL (7-20); CALCIUM 9.4 mg/dL (8.4-10.2); CARBON DIOXIDE 26 mmol/L (22-30); CHLORIDE 105 mmol/L (98-107); GLUCOSE 98 mg/dL (75-110); POTASSIUM 4.1 mmol/L (3.6-5.0); SODIUM 139.7 mmol/L (137-145); TOTAL PROTEIN 7.3 g/dL (6.3-8.2)
--- NOTE | 2017-05-03 12:39 | RADIOLOGY REPORT (SQ) ---
EXAM DESCRIPTION: CHEST PA/LAT COMPLETED DATE/TIME: 05/03/2017 12:23 pm REASON FOR STUDY: DB COMPARISON: 12/20/2016 EXAM PARAMETERS: NUMBER OF VIEWS: two views TECHNIQUE: Digital Frontal and Lateral radiographic views of the chest acquired. RADIATION DOSE: NA LIMITATIONS: none FINDINGS: LUNGS AND PLEURA: No opacities, masses or pneumothorax. No pleural effusion. MEDIASTINUM AND HILAR STRUCTURES: No masses or contour abnormalities. HEART AND VASCULAR STRUCTURES: Heart normal size. No evidence for failure. BONES: No acute findings. HARDWARE: None in the chest. OTHER: No other significant finding. IMPRESSION: NO SIGNIFICANT RADIOGRAPHIC FINDING IN THE CHEST. TECHNICAL DOCUMENTATION: JOB ID: [id number] [email or web address]- All Rights Reserved
[2017-05-03 14:13] VITALS: BP 131/85
== END 2017-05-03 14:13 | disposition home or self-care (01) ==
LOC: ER 11:40
DX: J44.0 Chronic obstructive pulmonary disease with (acute) lower respiratory infection (principal); J20.9 Acute bronchitis, unspecified; J44.1 Chronic obstructive pulmonary disease with (acute) exacerbation; R05 Cough; R06.02 Shortness of breath; I25.2 Old myocardial infarction; I25.10 Atherosclerotic heart disease of native coronary artery without angina pectoris; F17.200 Nicotine dependence, unspecified, uncomplicated; Z88.8 Allergy status to other drugs, medicaments and biological substances; Z88.1 Allergy status to other antibiotic agents; Z88.5 Allergy status to narcotic agent; Z86.718 Personal history of other venous thrombosis and embolism
CPT/HCPCS: 94640 ×2; 99285; 36415; 85025; 80053; 71020; J7620

== ENCOUNTER 2017-06-18 14:11 | Emergency (ER) | payer BC, MEDICAID ==
[2017-06-18 14:16] VITALS: BP 116/74
[2017-06-18] MEDS ORDERED: IPRATROPIUM/ALBUTEROL 0.5-2.5 MG/3 ML AMPUL NEB ONE ×2 (14:32→17:17)
[2017-06-18] MEDS ORDERED: PREDNISONE 20 MG TABLET PO ONE ×2 (14:49→15:06)
--- NOTE | 2017-06-18 14:49 | ER Document Report ---
ED Respiratory Problem - General Chief Complaint: Cold Symptoms Stated Complaint: COUGH AND BODY ACHES Time Seen by Provider: 06/18/17 14:34 Notes: Patient is a 31-year-old male who arrives via EMS complaining of cough and shortness of breath for the past week. Patient states that he does have a history of COPD but has not been taking his inhalers at home. States that he does have a primary care provider appointment on Saturday but he felt he would not be able to make it due to shortness of breath. Patient states that he is a smoker but has cut down from a pack a day to 4 cigarettes a day. Otherwise denies any fevers, chills, sinus congestion. TRAVEL OUTSIDE OF THE [place] IN LAST 30 DAYS: No - Related Data Allergies/Adverse Reactions: ketorolac tromethamine [From Toradol] Allergy (Verified 12/20/16 18:09) sulfamethoxazole [From Bactrim] Allergy (Verified 12/20/16 18:09) tramadol [Tramadol] Allergy (Verified 12/20/16 18:09) trimethoprim [From Bactrim] Allergy (Verified 12/20/16 18:09) methocarbamol [From Robaxin] Adverse Reaction (Verified 12/20/16 18:09) Hives Past Medical History - Social History Smoking Status: Current Every Day Smoker Family History: None - Past Medical History Cardiac Medical History: Reports: Hx Coronary Artery Disease, Hx DVT - Multiple ; last 2014. Took himself off his systemic anticoagulant., Hx Heart Attack - September 2014. Denies: Hx Hypercholesterolemia, Hx Pulmonary Embolism Pulmonary Medical History: Reports: Hx Asthma, Hx COPD Neurological Medical History: Reports: Hx Cerebrovascular Accident. Denies: Hx Seizures Endocrine Medical History: Denies: Hx Diabetes Mellitus Type 1, Hx Diabetes Mellitus Type 2, Hx Hyperthyroidism, Hx Hypothyroidism Renal/ Medical History: Reports: Hx Kidney Stones. Denies: Hx Peritoneal Dialysis GI Medical History: Denies: Hx Cirrhosis, Hx Gastroesophageal Reflux Disease, Hx Hepatitis Musculoskeltal Medical History: Reports Hx Arthritis Psychiatric Medical History: Denies: Hx Depression Infectious Medical History: Denies: Hx Hepatitis Past Surgical History: Reports: Hx Orthopedic Surgery - Knee and toe, Other - Dental surgery - Immunizations Hx Diphtheria, Pertussis, Tetanus Vaccination: No Review of Systems - Review of Systems Constitutional: No symptoms reported EENT: No symptoms reported Cardiovascular: See HPI Respiratory: See HPI Physical Exam - Vital signs Vitals: Temp Pulse Resp BP Pulse Ox 97.8 F 74 16 116/74 94 06/18/17 14:13 06/18/17 14:13 06/18/17 14:13 06/18/17 14:13 06/18/17 14:13 - Notes Notes: PHYSICAL EXAM GENERAL: Alert, interacts well. HEAD: Normocephalic, atraumatic. EYES: Pupils equal, round, and reactive to light. Extraocular movements intact. ENT: Oral mucosa moist, tongue midline. Uvula midline. Airway patent. No evidence of tonsillar enlargement, peritonsillar abscess, retropharyngeal abscess. NECK: Full range of motion. Supple. Trachea midline. LUNGS: Diffuse bilateral wheezes rhonchi without evidence of rales or stridor. No respiratory distress. HEART: Regular rate and rhythm. No murmurs, gallops, or rubs. EXTREMITIES: Moves all 4 extremities spontaneously. No edema, radial and dorsalis pedis pulses 2/4 bilaterally. No cyanosis. NEUROLOGICAL: Alert and oriented x4. Normal speech. PSYCH: Normal affect, normal mood. SKIN: Warm, dry, normal turgor. No rashes or lesions noted. Course - Re-evaluation Re-evalutation: 06/19/17 15:00 Patient is a 31-year-old male is hemodynamically stable, no acute distress and afebrile. Chest x-ray clear without any evidence of pneumonia. Patient improving after DuoNeb and albuterol treatments. Patient will be discharged home with inhaler, antibiotic and steroid to follow up on saturday with primary care - Vital Signs Vital signs: Temp Pulse Resp BP Pulse Ox 97.8 F 74 16 116/74 94 06/18/17 14:13 06/18/17 14:13 06/18/17 14:13 06/18/17 14:13 06/18/17 14:13 - Diagnostic Test Radiology reviewed: Image reviewed, Reports reviewed Discharge - Discharge Clinical Impression: COPD (chronic obstructive pulmonary disease) Qualifiers: COPD type: COPD with acute exacerbation Qualified Code(s): J44.1 - Chronic obstructive pulmonary disease with (acute) exacerbation Condition: Good Disposition: HOME, SELF-CARE Instructions: Chronic Obstructive Lung Disease ([facility]) Additional Instructions: Please be sure to take your medication as directed. Please be sure to follow- up with your primary care provider on Saturday as scheduled. Prescriptions: Albuterol Sulfate [Albuterol Sulfate 2.5mg/3 mL] 1 vial IH Q4 PRN #20 vial PRN Reason: Azithromycin [Zithromax 250 mg Tablet] 250 mg PO ASDIR PRN #6 tablet PRN Reason: Nebulizer [Nebulizer Machine] 1 each MC ASDIR PRN #1 kit PRN Reason: Nebulizer Accessories [Mouthpiece] 1 each MC JESSY #1 each Prednisone [Deltasone 20 mg Tablet] 3 tab PO DAILY 5 Days tablet Forms: Return to Work
[2017-06-18] MEDS ORDERED: ALBUTEROL SULFATE 0.083% NEB 2.5 MG/3 ML AMPUL NEB ONE (15:06)
--- NOTE | 2017-06-18 15:44 | RADIOLOGY REPORT (SQ) ---
EXAM DESCRIPTION: CHEST PA/LAT COMPLETED DATE/TIME: 06/18/2017 3:23 pm REASON FOR STUDY: cough, fever COMPARISON: Chest film 05/03/2017 CT chest 12/03/2016 EXAM PARAMETERS: NUMBER OF VIEWS: two views TECHNIQUE: Digital Frontal and Lateral radiographic views of the chest acquired. RADIATION DOSE: NA LIMITATIONS: none FINDINGS: LUNGS AND PLEURA: No opacities, masses or pneumothorax. No pleural effusion. MEDIASTINUM AND HILAR STRUCTURES: No masses or contour abnormalities. HEART AND VASCULAR STRUCTURES: Heart normal size. No evidence for failure. BONES: No acute findings. Mild convex rightward thoracic curvature HARDWARE: None in the chest. Clips right upper quadrant post cholecystectomy OTHER: No other significant finding. IMPRESSION: NO SIGNIFICANT RADIOGRAPHIC FINDING IN THE CHEST. TECHNICAL DOCUMENTATION: JOB ID: [id number] [employer]- All Rights Reserved
[2017-06-18] MEDS ORDERED: ALBUTEROL SULFATE HFA (90 MCG/PUFF) 8 GM MDI (1 MDI/ER DISP) IH PRN (17:49)
== END 2017-06-18 18:23 | disposition home or self-care (01) ==
LOC: ER 14:11
DX: J44.1 Chronic obstructive pulmonary disease with (acute) exacerbation (principal); R05 Cough; R06.02 Shortness of breath; I25.10 Atherosclerotic heart disease of native coronary artery without angina pectoris; I25.2 Old myocardial infarction; F17.210 Nicotine dependence, cigarettes, uncomplicated; Z88.8 Allergy status to other drugs, medicaments and biological substances; Z88.1 Allergy status to other antibiotic agents; Z88.5 Allergy status to narcotic agent; Z95.5 Presence of coronary angioplasty implant and graft
CPT/HCPCS: 94640 ×2; 99284; 87070; 87880; 87804; 71020; J7512; J3490; J7620

== ENCOUNTER 2017-07-30 01:13 | Emergency (ER) | payer BC, MEDICAID ==
[2017-07-30] MEDS ORDERED: NORMAL SALINE 1000 ML 1,000 ML IV ONE (01:26)
[2017-07-30] MEDS ORDERED: ALBUTEROL SULFATE 0.083% NEB 2.5 MG/3 ML AMPUL NEB ONE ×2 (01:26→01:43)
[2017-07-30] MEDS ORDERED: MAGNESIUM SULFATE/D5W 1 GM/100 ML RTUPB IV SCH (01:30)
[2017-07-30] MEDS ORDERED: ALBUTEROL SULFATE HFA (90 MCG/PUFF) 200 PUFF/8.5 GM MDI IH ONE (01:43)
--- NOTE | 2017-07-30 01:45 | ER Document Report ---
ED General - General Stated Complaint: TROUBLE BREATHING Time Seen by Provider: 07/30/17 01:25 Notes: Patient is a 31 year old male with past medical history of asthma, currently out of all medications who presents with 3 days of progressively worsening cough and shortness of breath. Patient states that he ran out of his inhalers proximal 1 month ago and apparently his primary care doctor did not want to refill them for unclear reasons. He has had multiple hospitalizations for asthma exacerbations in the past but has never required intubation. He notes that any form of exertion worsens his symptoms. He does not have anything available at home to improve his symptoms. He denies any fever or constitutional symptoms. No pleuritic pain. TRAVEL OUTSIDE OF THE [place] IN LAST 30 DAYS: No - Related Data Allergies/Adverse Reactions: ketorolac tromethamine [From Toradol] Allergy (Verified 12/20/16 18:09) sulfamethoxazole [From Bactrim] Allergy (Verified 12/20/16 18:09) tramadol [Tramadol] Allergy (Verified 12/20/16 18:09) trimethoprim [From Bactrim] Allergy (Verified 12/20/16 18:09) methocarbamol [From Robaxin] Adverse Reaction (Verified 12/20/16 18:09) Hives Past Medical History - General Information source: Patient - Social History Smoking Status: Never Smoker Frequency of alcohol use: None Drug Abuse: None Family History: Reviewed & Not Pertinent - Past Medical History Cardiac Medical History: Reports: Hx Coronary Artery Disease, Hx DVT - Multiple ; last 2014. Took himself off his systemic anticoagulant., Hx Heart Attack - September 2014. Denies: Hx Hypercholesterolemia, Hx Pulmonary Embolism Pulmonary Medical History: Reports: Hx Asthma, Hx COPD Neurological Medical History: Reports: Hx Cerebrovascular Accident. Denies: Hx Seizures Endocrine Medical History: Denies: Hx Diabetes Mellitus Type 1, Hx Diabetes Mellitus Type 2, Hx Hyperthyroidism, Hx Hypothyroidism Renal/ Medical History: Reports: Hx Kidney Stones. Denies: Hx Peritoneal Dialysis GI Medical History: Denies: Hx Cirrhosis, Hx Gastroesophageal Reflux Disease, Hx Hepatitis Musculoskeltal Medical History: Reports Hx Arthritis Psychiatric Medical History: Denies: Hx Depression Infectious Medical History: Denies: Hx Hepatitis Past Surgical History: Reports: Hx Orthopedic Surgery - Knee and toe, Other - Dental surgery - Immunizations Hx Diphtheria, Pertussis, Tetanus Vaccination: No Review of Systems - Review of Systems Notes: Constitutional: Negative for fever. HENT: Negative for sore throat. Eyes: Negative for visual changes. Cardiovascular: Negative for chest pain. Respiratory: Positive for shortness of breath. Gastrointestinal: Negative for abdominal pain, vomiting or diarrhea. Genitourinary: Negative for dysuria. Musculoskeletal: Negative for back pain. Skin: Negative for rash. Neurological: Negative for headaches, weakness or numbness. 10 point ROS negative except as marked above and in HPI. Physical Exam - Vital signs Vitals: Resp 15 07/30/17 01:25 Interpretation: Normal Notes: PHYSICAL EXAMINATION: GENERAL: Well-appearing, well-nourished and in no acute distress. HEAD: Atraumatic, normocephalic. EYES: Pupils equal round and reactive to light, extraocular movements intact, sclera anicteric, conjunctiva are normal. ENT: nares patent, oropharynx clear without exudates. Moist mucous membranes. NECK: Normal range of motion, supple without lymphadenopathy LUNGS: Somewhat tight air movement in all lung bay although breath sounds throughout. There is a minimally prolonged expiratory phase with an expiratory wheeze. No retractions or distress HEART: Regular rate and rhythm without murmurs ABDOMEN: Soft, nontender, normoactive bowel sounds. No guarding, no rebound. No masses appreciated. EXTREMITIES: Normal range of motion, no pitting or edema. No cyanosis. NEUROLOGICAL: No focal neurological deficits. Moves all extremities spontaneously and on command. PSYCH: Normal mood, normal affect. SKIN: Warm, Dry, normal turgor, no rashes or lesions noted. Course - Re-evaluation Re-evalutation: 07/30/17 01:44 Patient presents with a mild exacerbation of their baseline asthma. Mild wheezing at time of presentation but vitals do not show significant hypoxemia or tachypnea. No retractions. Patient did clinically improve after receiving nebulizers here in the emergency department. Chest x-ray without evidence of an acute pneumonia. Patient able to ambulate without any respiratory distress. Based on patient's overall reassuring assessment, I believe they are stable for outpatient management with steroids. I do not suspect an acute alternative pathology at this time based on history and exam including acute pulmonary embolus, ACS, pneumothorax, or aortic dissection. At this time will discharge with return precautions and follow-up recommendations. Verbal discharge instructions given a the bedside and opportunity for questions given. Medication warnings reviewed. Patient is in agreement with this plan and has verbalized understanding of return precautions and the need for primary care follow-up in the next 24-72 hours. - Vital Signs Vital signs: Temp Pulse Resp BP Pulse Ox 99 F 117 H 13 102/76 98 07/30/17 02:00 07/30/17 02:00 07/30/17 02:02 07/30/17 02:00 07/30/17 02:02 - Diagnostic Test Radiology reviewed: Image reviewed, Reports reviewed Radiology results interpreted by me: 07/30/17 01:44 Chest x-ray: No acute infiltrate or pneumothorax Discharge - Discharge Clinical Impression: Asthma exacerbation Qualifiers: Asthma severity: moderate Asthma persistence: persistent Qualified Code(s): J45.41 - Moderate persistent asthma with (acute) exacerbation Condition: Stable Disposition: HOME, SELF-CARE Additional Instructions: You were seen for an asthma exacerbation. Your symptoms improved with treatment here in the emergency department. However, it is very important that you return to the emergency department immediately if you began to have worsening difficulty breathing that does not respond to your normal home nebulizers. You are also being sent home on a five-day course of steroids that you should start taking tomorrow. Please also follow closely with your primary care physician. you should also return to emergency department if you develop fever greater than 101, persistent cough, persistent vomiting, pass out, or any other symptoms that are concerning to you. Prescriptions: Prednisone [Deltasone 20 mg Tablet] 3 tab PO DAILY 5 Days tablet
--- NOTE | 2017-07-30 02:19 | RADIOLOGY REPORT (SQ) ---
EXAM DESCRIPTION: CHEST SINGLE VIEW CLINICAL HISTORY: 31 years, Male, sob COMPARISON: 06/18/2017. NUMBER OF VIEWS: 1. TECHNIQUE: AP portable. LIMITATIONS: None. FINDINGS: Adequate lung volumes, clear parenchyma, normal cardiac silhouette. Intact bony thorax. IMPRESSION: Normal chest radiograph. 2011 [employer]- All Rights Reserved
[2017-07-30 02:29] VITALS: BP 136/74
== END 2017-07-30 02:54 | disposition home or self-care (01) ==
LOC: ER 01:13
DX: J45.41 Moderate persistent asthma with (acute) exacerbation (principal); J44.9 Chronic obstructive pulmonary disease, unspecified; R05 Cough; R06.02 Shortness of breath; I25.10 Atherosclerotic heart disease of native coronary artery without angina pectoris; I25.2 Old myocardial infarction; Z88.8 Allergy status to other drugs, medicaments and biological substances; Z88.5 Allergy status to narcotic agent; Z88.1 Allergy status to other antibiotic agents; Z86.718 Personal history of other venous thrombosis and embolism
CPT/HCPCS: 94640; 99285; 96360; 71010; J7030

== ENCOUNTER → 2017-08-28 | Outpatient (CLI) | payer OTHER ==
[~2017-08-28] MED LIST: ALBUTEROL SULFATE 0.083% NEB 2.5 MG/3 ML AMPUL NEB ONE
--- NOTE | 2017-08-28 15:38 | PULMONARY FUNCTION TEST ---
DATE OF SERVICE: 08/28/2017 THE VITAL CAPACITY IS NORMAL. THE EXPIRATORY FLOW RATES ARE SLIGHTLY DECREASED. THE FEV1/VC IS 70%, PREDICTED: 83% THE DLCO IS 34.2, 101% OF PREDICTED. AFTER BRONCHODILATOR, EXPIRATORY FLOW RATES SHOW NO SIGNIFICANT CHANGE. IMPRESSION: GOOD PATIENT EFFORT. SLIGHT OBSTRUCTIVE DEFECT. DIFFUSING CAPACITY IS NORMAL. CC: GISELE SOUSA MD > [facility]
== END ==
LOC: RT 14:22
DX: J43.9 Emphysema, unspecified (principal); J45.909 Unspecified asthma, uncomplicated
CPT/HCPCS: 94060; 94729

== ENCOUNTER 2017-10-21 09:34 | Emergency (ER) | payer SELFPAY ==
[2017-10-21] MEDS ORDERED: IPRATROPIUM/ALBUTEROL 0.5-2.5 MG/3 ML AMPUL NEB ONE (10:08)
[2017-10-21] MEDS ORDERED: METHYLPREDNISOLONE INJ 125 MG/2 ML SDV IV ONE (10:08)
[2017-10-21] MEDS ORDERED: CLONIDINE HCL 0.1 MG TABLET PO ONE (10:11)
[2017-10-21 10:15] LABS: ABSOLUTE BASOPHILS # (AUTO) 0.1 10^3/uL (0.0-0.2); ABSOLUTE EOSINOPHILS # (AUTO) 0.7 10^3/uL (0.0-0.6); ABSOLUTE LYMPHOCYTES (AUTO) 1.8 10^3/uL (0.5-4.7); ABSOLUTE MONOCYTES (AUTO) 0.6 10^3/uL (0.1-1.4); BASOPHILS % (AUTO) 1.1 % (0-2); EOSINOPHILS % (AUTO) 9.7 % (0-6); HEMATOCRIT 46.5 % (37.9-51.0); HEMOGLOBIN 16.1 g/dL (13.5-17.0); MEAN CORPUSCULAR HEMOGLOBIN 31.2 pg (27.0-33.4); MEAN CORPUSCULAR HGB CONC 34.6 g/dL (32.0-36.0); MEAN CORPUSCULAR VOLUME 90 fl (80-97); MONOCYTES % (AUTO) 8.1 % (3-13); PLATELET COUNT 448 10^3/uL (150-450); RED BLOOD COUNT 5.16 10^6/uL (4.35-5.55); RED CELL DISTRIBUTION WIDTH 13.1 % (11.5-14.0); SEGMENTED NEUTROPHILS % (AUTO) 56.1 % (42-78); TOTAL CELLS COUNTED % (AUTO) 100 %; WHITE BLOOD COUNT 7.1 10^3/uL (4.0-10.5)
--- NOTE | 2017-10-21 10:18 | ER Document Report ---
ED Respiratory Problem - General Chief Complaint: Shortness Of Breath Stated Complaint: SHORTNESS OF BREATH Time Seen by Provider: 10/21/17 09:54 Mode of Arrival: Ambulatory Information source: Patient Notes: 32 years old male with a history of COPD, smoking, quit smoking 14 weeks ago, presents with shortness of breath wheezing as well as chest wall pain. For the last few days. He has run out of his medications 2 weeks ago including blood thinner. He states that he could not afford to buy them. Denies any fever chills earache sore throat. Denies any abdominal pain nausea vomiting. Denies any other constitutional symptoms. TRAVEL OUTSIDE OF THE [place] IN LAST 30 DAYS: No - HPI Patient complains to provider of: COPD, Cough. No: Asthma, Chest pain, CHF, Hurts to breath, Short of breath, Other Duration: Intermittent episodes - Related Data Allergies/Adverse Reactions: ketorolac tromethamine [From Toradol] Allergy (Verified 12/20/16 18:09) sulfamethoxazole [From Bactrim] Allergy (Verified 12/20/16 18:09) tramadol [Tramadol] Allergy (Verified 12/20/16 18:09) trimethoprim [From Bactrim] Allergy (Verified 12/20/16 18:09) methocarbamol [From Robaxin] Adverse Reaction (Verified 12/20/16 18:09) Hives Past Medical History - General Information source: Patient - Social History Smoking Status: Current Every Day Smoker Cigarette use (# per day): Yes Chew tobacco use (# tins/day): No Smoking Education Provided: No Frequency of alcohol use: Rare Family History: Reviewed & Not Pertinent - Past Medical History Cardiac Medical History: Reports: Hx Coronary Artery Disease, Hx DVT - Multiple ; last 2014. Took himself off his systemic anticoagulant., Hx Heart Attack - September 2014. Denies: Hx Hypercholesterolemia, Hx Pulmonary Embolism Pulmonary Medical History: Reports: Hx Asthma, Hx COPD Neurological Medical History: Reports: Hx Cerebrovascular Accident. Denies: Hx Seizures Endocrine Medical History: Denies: Hx Diabetes Mellitus Type 1, Hx Diabetes Mellitus Type 2, Hx Hyperthyroidism, Hx Hypothyroidism Renal/ Medical History: Reports: Hx Kidney Stones. Denies: Hx Peritoneal Dialysis GI Medical History: Denies: Hx Cirrhosis, Hx Gastroesophageal Reflux Disease, Hx Hepatitis Musculoskeltal Medical History: Reports Hx Arthritis Psychiatric Medical History: Denies: Hx Depression Infectious Medical History: Denies: Hx Hepatitis Past Surgical History: Reports: Hx Orthopedic Surgery - Knee and toe, Other - Dental surgery - Immunizations Hx Diphtheria, Pertussis, Tetanus Vaccination: No Review of Systems - Review of Systems Constitutional: denies: No symptoms reported, See HPI, Chills, Diaphoresis, Fever, Malaise, Weakness, Other, Weight gain, Weight loss, Recent illness EENT: denies: No symptoms reported, See HPI, Eye pain, Eye discharge, Blurred vision, Tearing, Double vision, Ear pain, Ear discharge, Nose pain, Nose congestion, Nose discharge, Sinus pressure, Sinus discharge, Throat pain, Difficulty swallowing, Throat swelling, Mouth pain, Mouth swelling, Dental problem, Vertigo, Other Cardiovascular: denies: No symptoms reported, See HPI, Chest pain, Palpitations , Heart racing, Orthopnea, Dyspnea, Syncope, Dizziness, Lightheaded, Edema, Other, Paroxysmal Nocturnal Dysp Gastrointestinal: denies: No symptoms reported, See HPI, Abdomen distended, Abdominal pain, Diarrhea, Nausea, Vomiting, Constipation, Blood streaked bowels , Poor appetite, Poor fluid intake, Blood in vomit, Black stools, Rectal bleeding, Last bowel movement, Fecal incontinence, Other Musculoskeletal: denies: No symptoms reported, See HPI, Back pain, Gout, Joint pain, Joint swelling, Muscle pain, Muscle stiffness, Neck pain, Deformity, Leg swelling, Ankle swelling, Other Physical Exam - Vital signs Vitals: Resp Pulse Ox 16 97 10/21/17 09:37 10/21/17 09:37 - Notes Notes: PHYSICAL EXAMINATION: GENERAL: Well-appearing, well-nourished and in no acute distress. Not seems to be any acute distress. HEAD: Atraumatic, normocephalic. EYES: Pupils equal round and reactive to light, extraocular movements intact, sclera anicteric, conjunctiva are normal. ENT: Nares patent, oropharynx clear without exudates. Moist mucous membranes. NECK: Normal range of motion, supple without lymphadenopathy LUNGS: Bilaterally fairly good breath sounds except for scattered wheezes in the posterior upper part of the lung on both sides. No rales chest for tenderness noted in the parasternal region HEART: Regular rate and rhythm without murmurs ABDOMEN: Soft, nontender, nondistended abdomen. No guarding, no rebound. No masses appreciated. Musculoskeletal: Normal range of motion, no pitting or edema. No cyanosis. NEUROLOGICAL: Cranial nerves grossly intact. Normal speech, normal gait. Normal sensory, motor exams PSYCH: Normal mood, normal affect. SKIN: Warm, Dry, normal turgor, no rashes or lesions noted. Course - Vital Signs Vital signs: Temp Pulse Resp BP Pulse Ox 97.4 F 18 114/77 94 10/21/17 12:43 10/21/17 12:01 10/21/17 12:01 10/21/17 12:01 - Laboratory Result Diagrams: 10/21/17 10:04 10/21/17 10:04 Laboratory results interpreted by me: 10/21/17 10:04 Eosinophils % 9.7 H Absolute Eosinophils 0.7 H - EKG Interpretation by Ga EKG shows normal: Sinus rhythm Rate: Normal Rhythm: NSR - Electrocardiogram shows sinus rhythm with rate of 67 bpm normal axis no acute ST elevation ST depression T-wave inversion noted. Discharge - Discharge Clinical Impression: Chest wall pain, COPD mixed type Condition: Fair Disposition: HOME, SELF-CARE Instructions: Chest Wall Pain ([facility]) Referrals: LOCALMD,NO [Primary Care Provider] - Follow up as needed
--- NOTE | 2017-10-21 10:18 | RADIOLOGY REPORT (SQ) ---
EXAM DESCRIPTION: CHEST SINGLE VIEW COMPLETED DATE/TIME: 10/21/2017 10:02 am REASON FOR STUDY: Shortness of Breath COMPARISON: 07/30/2017 EXAM PARAMETERS: NUMBER OF VIEWS: One view. TECHNIQUE: Single frontal radiographic view of the chest acquired. RADIATION DOSE: NA LIMITATIONS: None. FINDINGS: LUNGS AND PLEURA: No opacities, masses or pneumothorax. No pleural effusion. MEDIASTINUM AND HILAR STRUCTURES: No masses. Contour normal. HEART AND VASCULAR STRUCTURES: Heart normal in size. Normal vasculature. BONES: No acute findings. HARDWARE: None in the chest. OTHER: No other significant finding. IMPRESSION: NO ACUTE RADIOGRAPHIC FINDING IN THE CHEST. TECHNICAL DOCUMENTATION: JOB ID: [id number] [employer]- All Rights Reserved Reading location - IP/workstation name: [email or web address]
[2017-10-21 10:31] LABS: INTERNATIONAL RATION (INR) 0.93; PROTHROMBIN TIME 13.2 SEC (11.4-15.4)
[2017-10-21 10:32] LABS: ALANINE AMINOTRANSFERASE 27 U/L (21-72); ALBUMIN 4.5 g/dL (3.5-5.0); ALKALINE PHOSPHATASE 64 U/L (38-126); ANION GAP 15 (5-19); ASPARTATE AMINO TRANSFERASE 18 U/L (17-59); BILIRUBIN,DIRECT 0.4 mg/dL (0.0-0.4); BILIRUBIN,TOTAL 0.6 mg/dL (0.2-1.3); BLOOD UREA NITROGEN 12 mg/dL (7-20); CARBON DIOXIDE 25 mmol/L (22-30); CHLORIDE 101 mmol/L (98-107); GLUCOSE 88 mg/dL (75-110); POTASSIUM 4.7 mmol/L (3.6-5.0); SODIUM 140.7 mmol/L (137-145); TOTAL PROTEIN 7.4 g/dL (6.3-8.2)
[2017-10-21] MEDS ORDERED: ONDANSETRON HCL INJ/PF 4 MG/2 ML SDV IV ONE (11:48)
[2017-10-21] MEDS ORDERED: FENTANYL CITRATE INJ/PF 100 MCG/2 ML AMPUL IV ONE (11:48)
[2017-10-21 12:06] LABS: APPEARANCE,URINE CLEAR; BILIRUBIN,URINE NEGATIVE (NEGATIVE); COLOR,URINE YELLOW; GLUCOSE, URINE NEGATIVE (NEGATIVE); KETONES,URINE NEGATIVE (NEGATIVE); LEUKOCYTE ESTERASE,URINE NEGATIVE (NEGATIVE); NITRITE,URINE NEGATIVE (NEGATIVE); PROTEIN,URINE NEGATIVE (NEGATIVE); UROBILINOGEN,URINE NEGATIVE mg/dL (<2.0)
[2017-10-21 12:27] LABS: URINE AMPHETAMINES SCREEN NEGATIVE; URINE BARBITURATES SCREEN NEGATIVE; URINE BENZODIAZEPINES SCREEN NEGATIVE; URINE COCAINE SCREEN NEGATIVE; URINE MARIJUANA (THC) SCREEN NEGATIVE; URINE METHADONE SCREEN NEGATIVE; URINE PHENCYCLIDINE SCREEN NEGATIVE
[2017-10-21] MEDS ORDERED: ALBUTEROL SULFATE HFA (90 MCG/PUFF) 8 GM MDI (1 MDI/ER DISP) IH PRN (12:33)
[2017-10-21 12:37] VITALS: BP 114/77
--- NOTE | 2017-10-21 13:48 | EKG REPORT ---
SEVERITY:- NORMAL ECG - SINUS RHYTHM : Confirmed by: Osman Hi MD 21-Oct-2017 13:46:36
== END 2017-10-21 12:43 | disposition home or self-care (01) ==
LOC: ER 09:34
DX: J44.9 Chronic obstructive pulmonary disease, unspecified (principal); R07.89 Other chest pain; R06.02 Shortness of breath; I25.10 Atherosclerotic heart disease of native coronary artery without angina pectoris; I25.2 Old myocardial infarction; F17.210 Nicotine dependence, cigarettes, uncomplicated; Z87.891 Personal history of nicotine dependence; Z86.718 Personal history of other venous thrombosis and embolism; Z86.73 Personal history of transient ischemic attack (TIA), and cerebral infarction without residual deficits
CPT/HCPCS: 93005; 94640; 99285; 96374; 36415; 85025; 85610; 80053; 81001; 80307; 85379; 71045; 93010; J2930; J3490; J7620

== ENCOUNTER 2018-01-21 17:13 | Emergency (ER) | payer SELFPAY ==
[2018-01-21] MEDS ORDERED: IPRATROPIUM/ALBUTEROL 0.5-2.5 MG/3 ML AMPUL NEB ONE ×2 (19:07→23:18)
[2018-01-21] MEDS ORDERED: PREDNISONE 20 MG TABLET PO ONE (19:07)
[2018-01-21] MEDS ORDERED: NORMAL SALINE 1000 ML 1,000 ML IV PRN (19:08)
[2018-01-21] MEDS ORDERED: NORMAL SALINE 1000 ML 1,000 ML IV ONE (19:08)
--- NOTE | 2018-01-21 19:11 | ER Document Report ---
ED Medical Screen (RME) - General Chief Complaint: Breathing Difficulty Stated Complaint: DIFFICULTY BREATHING Time Seen by Provider: 01/21/18 19:06 Notes: 32 years old male presents today with difficulty in breathing for last 3 days. And wheezing and coughing. He he appears to be under intoxication. Very foul-smelling coming from throughout his body. He is drowsy enough, could not give a proper history. Leaning towards the left side and sleepy. I have greeted and performed a rapid initial assessment of this patient. A comprehensive ED assessment and evaluation of the patient, analysis of test results and completion of the medical decision making process will be conducted by additional ED providers. PHYSICAL EXAMINATION: GENERAL: Mild to moderate acute distress. HEAD: Atraumatic, normocephalic. EYES: Pupils equal round extraocular movements intact, conjunctiva are normal. ENT: Nares patent NECK: Normal range of motion LUNGS: Diffuse wheezing. Musculoskeletal: Normal range of motion NEUROLOGICAL: Normal speech, normal gait. PSYCH: Normal mood, normal affect. SKIN: Warm, Dry, normal turgor, no rashes or lesions noted. TRAVEL OUTSIDE OF THE [place] IN LAST 30 DAYS: No - Related Data Allergies/Adverse Reactions: ketorolac tromethamine [From Toradol] Allergy (Verified 01/21/18 18:45) sulfamethoxazole [From Bactrim] Allergy (Verified 01/21/18 18:45) tramadol [Tramadol] Allergy (Verified 01/21/18 18:45) trimethoprim [From Bactrim] Allergy (Verified 01/21/18 18:45) methocarbamol [From Robaxin] Adverse Reaction (Verified 01/21/18 18:45) Hives Past Medical History - Social History Chew tobacco use (# tins/day): No Frequency of alcohol use: Rare Drug Abuse: Marijuana - Past Medical History Cardiac Medical History: Reports: Hx Coronary Artery Disease, Hx DVT - Multiple ; last 2014. Took himself off his systemic anticoagulant., Hx Heart Attack - September 2014. Denies: Hx Hypercholesterolemia, Hx Pulmonary Embolism Pulmonary Medical History: Reports: Hx Asthma, Hx COPD Neurological Medical History: Reports: Hx Cerebrovascular Accident. Denies: Hx Seizures Endocrine Medical History: Denies: Hx Diabetes Mellitus Type 1, Hx Diabetes Mellitus Type 2, Hx Hyperthyroidism, Hx Hypothyroidism Renal/ Medical History: Reports: Hx Kidney Stones. Denies: Hx Peritoneal Dialysis GI Medical History: Denies: Hx Cirrhosis, Hx Gastroesophageal Reflux Disease, Hx Hepatitis Musculoskeltal Medical History: Reports Hx Arthritis Psychiatric Medical History: Denies: Hx Depression Infectious Medical History: Denies: Hx Hepatitis Past Surgical History: Reports: Hx Orthopedic Surgery - Knee and toe, Other - Dental surgery - Immunizations Hx Diphtheria, Pertussis, Tetanus Vaccination: No History of Influenza Vaccine for 05/2017 - 10/2017 Season: No Physical Exam - Vital signs Vitals: Temp Pulse Resp BP Pulse Ox 98.9 F 105 H 16 148/85 H 97 01/21/18 17:17 01/21/18 17:17 01/21/18 17:17 01/21/18 17:17 01/21/18 17:17 Course - Vital Signs Vital signs: Temp Pulse Resp BP Pulse Ox 98.9 F 105 H 16 148/85 H 97 01/21/18 17:17 01/21/18 17:17 01/21/18 17:17 01/21/18 17:17 01/21/18 17:17
[2018-01-21] MEDS: ALBUTEROL SULFATE 0.083% NEB 2.5 MG/3 ML AMPUL NEB SCH ×2 (20:01→20:33)
[2018-01-21 20:06] LABS: ABSOLUTE BASOPHILS # (AUTO) 0.1 10^3/uL (0.0-0.2); ABSOLUTE EOSINOPHILS # (AUTO) 0.7 10^3/uL (0.0-0.6); ABSOLUTE LYMPHOCYTES (AUTO) 1.2 10^3/uL (0.5-4.7); ABSOLUTE MONOCYTES (AUTO) 1.2 10^3/uL (0.1-1.4); ABSOLUTE NEUT (AUTO) 12.2 10^3/uL (1.7-8.2); BASOPHILS % (AUTO) 0.7 % (0-2); EOSINOPHILS % (AUTO) 4.8 % (0-6); HEMATOCRIT 46.9 % (37.9-51.0); HEMOGLOBIN 15.7 g/dL (13.5-17.0); LYMPHOCYTES % (AUTO) 7.6 % (13-45); MEAN CORPUSCULAR HEMOGLOBIN 30.4 pg (27.0-33.4); MEAN CORPUSCULAR HGB CONC 33.6 g/dL (32.0-36.0); MEAN CORPUSCULAR VOLUME 91 fl (80-97); MONOCYTES % (AUTO) 7.6 % (3-13); PLATELET COUNT 503 10^3/uL (150-450); RED BLOOD COUNT 5.18 10^6/uL (4.35-5.55); RED CELL DISTRIBUTION WIDTH 13.7 % (11.5-14.0); SEGMENTED NEUTROPHILS % (AUTO) 79.3 % (42-78); TOTAL CELLS COUNTED % (AUTO) 100 %; WHITE BLOOD COUNT 15.4 10^3/uL (4.0-10.5)
[2018-01-21 20:27] LABS: ALANINE AMINOTRANSFERASE 22 U/L (21-72); ALBUMIN 4.8 g/dL (3.5-5.0); ALKALINE PHOSPHATASE 94 U/L (38-126); ANION GAP 16 (5-19); ASPARTATE AMINO TRANSFERASE 20 U/L (17-59); BILIRUBIN,DIRECT 0.4 mg/dL (0.0-0.4); BLOOD UREA NITROGEN 10 mg/dL (7-20); CALCIUM 10.8 mg/dL (8.4-10.2); CARBON DIOXIDE 27 mmol/L (22-30); CHLORIDE 101 mmol/L (98-107); GLUCOSE 95 mg/dL (75-110); POTASSIUM 4.2 mmol/L (3.6-5.0); SODIUM 144.1 mmol/L (137-145)
--- NOTE | 2018-01-21 20:44 | RADIOLOGY REPORT (SQ) ---
EXAM DESCRIPTION: CHEST SINGLE VIEW COMPLETED DATE/TIME: 01/21/2018 7:58 pm REASON FOR STUDY: Shortness of breath COMPARISON: 06/28/2017 EXAM PARAMETERS: NUMBER OF VIEWS: One view. TECHNIQUE: Single frontal radiographic view of the chest acquired. RADIATION DOSE: NA LIMITATIONS: None. FINDINGS: LUNGS AND PLEURA: No opacities, masses or pneumothorax. No pleural effusion. MEDIASTINUM AND HILAR STRUCTURES: No masses. Contour normal. HEART AND VASCULAR STRUCTURES: Heart normal in size. Normal vasculature. BONES: No acute findings. HARDWARE: None in the chest. OTHER: No other significant finding. IMPRESSION: NO ACUTE RADIOGRAPHIC FINDING IN THE CHEST. TECHNICAL DOCUMENTATION: JOB ID: [id number] [employer]- All Rights Reserved Reading location - IP/workstation name: [email or web address]
[2018-01-21 21:10] LABS: APPEARANCE,URINE CLEAR; BILIRUBIN,URINE NEGATIVE (NEGATIVE); COLOR,URINE YELLOW; GLUCOSE, URINE NEGATIVE (NEGATIVE); KETONES,URINE 20 mg/dL (NEGATIVE); LEUKOCYTE ESTERASE,URINE NEGATIVE (NEGATIVE); NITRITE,URINE NEGATIVE (NEGATIVE); PROTEIN,URINE NEGATIVE (NEGATIVE); URINE SPECIFIC GRAVITY 1.026; UROBILINOGEN,URINE NEGATIVE mg/dL (<2.0)
[2018-01-21] MEDS ORDERED: ACETAMINOPHEN 325 MG TABLET PO ONE (21:17)
[2018-01-21] MEDS ORDERED: ACETAMINOPHEN 325 MG TABLET ONE (21:18)
[2018-01-21 21:26] LABS: URINE AMPHETAMINES SCREEN NEGATIVE; URINE BARBITURATES SCREEN NEGATIVE; URINE BENZODIAZEPINES SCREEN NEGATIVE; URINE COCAINE SCREEN NEGATIVE; URINE MARIJUANA (THC) SCREEN UNCONFIRMED POSITIVE; URINE METHADONE SCREEN NEGATIVE; URINE PHENCYCLIDINE SCREEN NEGATIVE
[2018-01-22] MEDS ORDERED: TERBUTALINE SULFATE INJ/PF 1 MG/1 ML SDV SUBCUT ONE (00:11)
[2018-01-22] MEDS ORDERED: MAGNESIUM SULFATE/D5W 1 GM/100 ML RTUPB IV ONE (00:11)
[2018-01-22] MEDS ORDERED: ALBUTEROL SULFATE 0.083% NEB 2.5 MG/3 ML AMPUL NEB ONE (00:12)
[2018-01-22] MEDS ORDERED: NORMAL SALINE 1000 ML 1,000 ML IV ONE (00:41)
[2018-01-22] MEDS ORDERED: ONDANSETRON HCL INJ/PF 4 MG/2 ML SDV IV ONE (00:45)
[2018-01-22] MEDS ORDERED: PROCHLORPERAZINE EDISYLATE INJ 10 MG/2 ML VIAL IV ONE (00:45)
[2018-01-22] MEDS ORDERED: DIPHENHYDRAMINE HCL 50 MG/ML VIAL IV ONE (00:46)
--- NOTE | 2018-01-22 02:34 | ER Document Report ---
ED General - General Chief Complaint: Breathing Difficulty Stated Complaint: DIFFICULTY BREATHING Time Seen by Provider: 01/21/18 19:06 TRAVEL OUTSIDE OF THE [place] IN LAST 30 DAYS: No - HPI Patient complains to provider of: Difficulty breathing Notes: Patient coming in for difficulty breathing ongoing for the last 3 days. Patient states he has a history of COPD and asthma. Patient states most time he is very gets treated with steroids and bronchodilator therapy and is discharged home however states that he is not feeling any better with the treatments that were given upfront patient denies any fevers denies any changes denies any recent travel. Resting healthy upon my evaluation slightly tachycardic however no signs of hypoxia. - Related Data Allergies/Adverse Reactions: ketorolac tromethamine [From Toradol] Allergy (Verified 01/21/18 18:45) sulfamethoxazole [From Bactrim] Allergy (Verified 01/21/18 18:45) tramadol [Tramadol] Allergy (Verified 01/21/18 18:45) trimethoprim [From Bactrim] Allergy (Verified 01/21/18 18:45) methocarbamol [From Robaxin] Adverse Reaction (Verified 01/21/18 18:45) Hives Past Medical History - Social History Smoking Status: Former Smoker Chew tobacco use (# tins/day): No Frequency of alcohol use: Rare Drug Abuse: Marijuana Family History: Reviewed & Not Pertinent Patient has suicidal ideation: No Patient has homicidal ideation: No - Past Medical History Cardiac Medical History: Reports: Hx Coronary Artery Disease, Hx DVT - Multiple ; last 2014. Took himself off his systemic anticoagulant., Hx Heart Attack - September 2014. Denies: Hx Hypercholesterolemia, Hx Pulmonary Embolism Pulmonary Medical History: Reports: Hx Asthma, Hx COPD Neurological Medical History: Reports: Hx Cerebrovascular Accident. Denies: Hx Seizures Endocrine Medical History: Denies: Hx Diabetes Mellitus Type 1, Hx Diabetes Mellitus Type 2, Hx Hyperthyroidism, Hx Hypothyroidism Renal/ Medical History: Reports: Hx Kidney Stones. Denies: Hx Peritoneal Dialysis GI Medical History: Denies: Hx Cirrhosis, Hx Gastroesophageal Reflux Disease, Hx Hepatitis Musculoskeltal Medical History: Reports Hx Arthritis Psychiatric Medical History: Denies: Hx Depression Infectious Medical History: Denies: Hx Hepatitis Past Surgical History: Reports: Hx Orthopedic Surgery - Knee and toe, Other - Dental surgery - Immunizations Hx Diphtheria, Pertussis, Tetanus Vaccination: No Review of Systems - Review of Systems Constitutional: No symptoms reported EENT: No symptoms reported Cardiovascular: No symptoms reported Respiratory: Short of breath, Wheezing Gastrointestinal: No symptoms reported Genitourinary: No symptoms reported Male Genitourinary: No symptoms reported Musculoskeletal: No symptoms reported Skin: No symptoms reported Hematologic/Lymphatic: No symptoms reported Neurological/Psychological: No symptoms reported -: Yes All other systems reviewed and negative Physical Exam - Vital signs Vitals: Temp Pulse Resp BP Pulse Ox 98.9 F 105 H 16 148/85 H 97 01/21/18 17:17 01/21/18 17:17 01/21/18 17:17 01/21/18 17:17 01/21/18 17:17 Interpretation: Normal - General General appearance: Appears well, Alert - HEENT Head: Normocephalic, Atraumatic Eyes: Normal Pupils: PERRL - Respiratory Respiratory status: No respiratory distress Chest status: Nontender Breath sounds: Wheezing - Coarse wheezing throughout lung bay Chest palpation: Normal - Cardiovascular Rhythm: Regular Heart sounds: Normal auscultation Murmur: No - Abdominal Inspection: Normal Distension: No distension Bowel sounds: Normal Tenderness: Nontender Organomegaly: No organomegaly - Back Back: Normal, Nontender - Extremities General upper extremity: Normal inspection, Nontender, Normal color, Normal ROM , Normal temperature General lower extremity: Normal inspection, Nontender, Normal color, Normal ROM , Normal temperature, Normal weight bearing. No: Dwight's sign - Neurological Neuro grossly intact: Yes Cognition: Normal Orientation: AAOx4 [place] Coma Scale Eye Opening: Spontaneous [place] Coma Scale Verbal: Oriented [place] Coma Scale Motor: Obeys Commands [place] Coma Scale Total: 15 Speech: Normal Motor strength normal: LUE, RUE, LLE, RLE Sensory: Normal - Psychological Associated symptoms: Normal affect, Normal mood - Skin Skin Temperature: Warm Skin Moisture: Dry Skin Color: Normal Course - Re-evaluation Re-evalutation: 01/22/18 03:41 Patient was given breathing treatments steroids along with terbutaline and magnesium. During treatment patient developed a headache and therefore was given IV fluids Compazine Zofran and Benadryl. Patient's breathing did improve after bronchodilator therapy patient's headache also improved patient was monitored in ER for quite some time patient was sleeping with no signs of her hypoxia not requiring any oxygen therefore was felt to be safe to be discharged home. - Vital Signs Vital signs: Temp Pulse Resp BP Pulse Ox 98.1 F 103 H 20 136/72 H 99 01/22/18 03:11 01/22/18 03:11 01/22/18 03:11 01/22/18 03:11 01/22/18 03:11 - Laboratory Result Diagrams: 01/21/18 19:50 01/21/18 19:50 Laboratory results interpreted by me: 01/21/18 01/21/18 01/21/18 19:50 19:50 19:50 WBC 15.4 H Plt Count 503 H Seg Neutrophils % 79.3 H Lymphocytes % 7.6 L Absolute Neutrophils 12.2 H Absolute Eosinophils 0.7 H Calcium 10.8 H Urine Ketones 20 H Discharge - Discharge Clinical Impression: Marijuana use Asthma Qualifiers: Asthma severity: unspecified severity Asthma persistence: unspecified Asthma complication type: unspecified Qualified Code(s): J45.909 - Unspecified asthma, uncomplicated Condition: Good Disposition: HOME, SELF-CARE Instructions: Asthma ([facility]) Additional Instructions: Your evaluation is consistent with asthma exacerbation. Please take medications as prescribed. Please use the inhaler given to you here in ER 2 puffs every 4 hours. Steroids as prescribed return to ER for worsening symptoms. Prescriptions: Prednisone [Deltasone] 60 mg PO DAILY #24 tablet Forms: Return to Work
[2018-01-22] MEDS ORDERED: ALBUTEROL SULFATE HFA (90 MCG/PUFF) 8 GM MDI (1 MDI/ER DISP) IH ONE (02:36)
[2018-01-22 03:12] VITALS: BP 136/72
== END 2018-01-22 03:12 | disposition home or self-care (01) ==
LOC: ER 17:13
DX: J44.9 Chronic obstructive pulmonary disease, unspecified (principal); F12.10 Cannabis abuse, uncomplicated; R06.02 Shortness of breath; R51 Headache; R00.0 Tachycardia, unspecified; I25.10 Atherosclerotic heart disease of native coronary artery without angina pectoris; Z87.891 Personal history of nicotine dependence; Z88.8 Allergy status to other drugs, medicaments and biological substances; Z88.1 Allergy status to other antibiotic agents; Z88.5 Allergy status to narcotic agent
CPT/HCPCS: 94640 ×2; 99285; 96372; 96361; 96375; 96365; 36415; 85025; 80053; 81001; 80307; 71045; J1200; J3475; J7512; J0780; J3105; J2405; J7030 ×2; J3490; J7620

== ENCOUNTER 2019-02-13 12:13 | Emergency (ER) | payer SELFPAY ==
--- NOTE | 2019-02-13 13:21 | ER Document Report ---
ED Medical Screen (RME) - General Chief Complaint: Chest Pain Stated Complaint: CHEST PAIN Time Seen by Provider: 02/13/19 13:17 Mode of Arrival: Wheelchair Information source: Patient Notes: Patient presents complaining of chest pain that started around 10 PM yesterday and has been off and on every hour since then. Patient states that he had an episode in which he blacked out last night. Patient states that witnesses said he was not breathing or moving for 10 minutes but then came to. Patient reports nausea and shortness of breath. Patient states he has a history of an MA, hypertension multiple DVTs in the past, CVA, and alpha-1 antitrypsin. Patient states that he cannot afford the anticoagulant so he took himself off of his blood thinning medications. Patient states that he cannot take aspirin. I have greeted and performed a rapid initial assessment of this patient. A comprehensive ED assessment and evaluation of the patient, analysis of test results and completion of the medical decision making process will be conducted by additional ED providers. TRAVEL OUTSIDE OF THE [place] IN LAST 30 DAYS: No - Related Data Allergies/Adverse Reactions: ketorolac tromethamine [From Toradol] Allergy (Verified 01/21/18 18:45) sulfamethoxazole [From Bactrim] Allergy (Verified 01/21/18 18:45) tramadol [Tramadol] Allergy (Verified 01/21/18 18:45) trimethoprim [From Bactrim] Allergy (Verified 01/21/18 18:45) methocarbamol [From Robaxin] Adverse Reaction (Verified 01/21/18 18:45) Hives Past Medical History - Past Medical History Cardiac Medical History: Reports: Hx Coronary Artery Disease, Hx DVT - Multiple; last 2014. Took himself off his systemic anticoagulant., Hx Heart Attack - September 2014. Denies: Hx Hypercholesterolemia, Hx Pulmonary Embolism Pulmonary Medical History: Reports: Hx Asthma, Hx COPD Neurological Medical History: Reports: Hx Cerebrovascular Accident. Denies: Hx Seizures Endocrine Medical History: Denies: Hx Diabetes Mellitus Type 1, Hx Diabetes Mellitus Type 2, Hx Hyperthyroidism, Hx Hypothyroidism Renal/ Medical History: Reports: Hx Kidney Stones. Denies: Hx Peritoneal Dialysis GI Medical History: Denies: Hx Cirrhosis, Hx Gastroesophageal Reflux Disease, Hx Hepatitis Musculoskeltal Medical History: Reports Hx Arthritis Psychiatric Medical History: Denies: Hx Depression Infectious Medical History: Denies: Hx Hepatitis Past Surgical History: Reports: Hx Orthopedic Surgery - Knee and toe, Other - Dental surgery - Immunizations Hx Diphtheria, Pertussis, Tetanus Vaccination: No History of Influenza Vaccine for 05/2017 - 10/2017 Season: No Physical Exam - Vital signs Vitals: Temp Pulse Resp BP Pulse Ox 98.1 F 78 16 144/91 H 97 02/13/19 12:15 02/13/19 12:15 02/13/19 12:15 02/13/19 12:15 02/13/19 12:15 - Respiratory Respiratory status: No respiratory distress Breath sounds: Normal - Cardiovascular Rhythm: Regular Heart sounds: S1 appreciated, S2 appreciated Course - Vital Signs Vital signs: Temp Pulse Resp BP Pulse Ox 98.1 F 78 16 144/91 H 97 02/13/19 12:15 02/13/19 12:15 02/13/19 12:15 02/13/19 12:15 02/13/19 12:15
--- NOTE | 2019-02-13 14:08 | RADIOLOGY REPORT (SQ) ---
EXAM DESCRIPTION: CHEST 2 VIEWS COMPLETED DATE/TIME: 02/13/2019 1:56 pm REASON FOR STUDY: cp, syncope COMPARISON: PA chest 01/01/2018 CT angio chest 12/03/2016 EXAM PARAMETERS: NUMBER OF VIEWS: two views TECHNIQUE: Digital Frontal and Lateral radiographic views of the chest acquired. RADIATION DOSE: NA LIMITATIONS: none FINDINGS: LUNGS AND PLEURA: No opacities, masses or pneumothorax. No pleural effusion. MEDIASTINUM AND HILAR STRUCTURES: No masses or contour abnormalities. HEART AND VASCULAR STRUCTURES: Heart normal size. No evidence for failure. BONES: No acute findings. HARDWARE: None in the chest. OTHER: No other significant finding. IMPRESSION: NO ACUTE RADIOGRAPHIC FINDING IN THE CHEST. TECHNICAL DOCUMENTATION: JOB ID: [id number] [employer]- All Rights Reserved Reading location - IP/workstation name: [email or web address]
[2019-02-13 14:43] LABS: ABSOLUTE BASOPHILS # (AUTO) 0.1 10^3/uL (0.0-0.2); ABSOLUTE EOSINOPHILS # (AUTO) 0.4 10^3/uL (0.0-0.6); ABSOLUTE MONOCYTES (AUTO) 0.8 10^3/uL (0.1-1.4); ABSOLUTE NEUT (AUTO) 6.5 10^3/uL (1.7-8.2); BASOPHILS % (AUTO) 0.8 % (0-2); EOSINOPHILS % (AUTO) 4.2 % (0-6); HEMATOCRIT 44.6 % (37.9-51.0); HEMOGLOBIN 15.4 g/dL (13.5-17.0); LYMPHOCYTES % (AUTO) 20.7 % (13-45); MEAN CORPUSCULAR HEMOGLOBIN 31.2 pg (27.0-33.4); MEAN CORPUSCULAR HGB CONC 34.6 g/dL (32.0-36.0); MEAN CORPUSCULAR VOLUME 90 fl (80-97); MONOCYTES % (AUTO) 7.7 % (3-13); PLATELET COUNT 473 10^3/uL (150-450); RED BLOOD COUNT 4.95 10^6/uL (4.35-5.55); RED CELL DISTRIBUTION WIDTH 13.7 % (11.5-14.0); SEGMENTED NEUTROPHILS % (AUTO) 66.6 % (42-78); TOTAL CELLS COUNTED % (AUTO) 100 %; WHITE BLOOD COUNT 9.8 10^3/uL (4.0-10.5)
[2019-02-13 14:55] LABS: APPEARANCE,URINE CLEAR; BILIRUBIN,URINE NEGATIVE (NEGATIVE); COLOR,URINE YELLOW; GLUCOSE, URINE NEGATIVE (NEGATIVE); KETONES,URINE NEGATIVE (NEGATIVE); LEUKOCYTE ESTERASE,URINE SMALL (NEGATIVE); NITRITE,URINE NEGATIVE (NEGATIVE); PROTEIN,URINE NEGATIVE (NEGATIVE)
[2019-02-13 15:01] LABS: ALANINE AMINOTRANSFERASE 30 U/L (21-72); ALBUMIN 4.7 g/dL (3.5-5.0); ALKALINE PHOSPHATASE 64 U/L (38-126); ANION GAP 8 (5-19); ASPARTATE AMINO TRANSFERASE 22 U/L (17-59); BILIRUBIN,DIRECT 0.3 mg/dL (0.0-0.4); BILIRUBIN,TOTAL 0.6 mg/dL (0.2-1.3); BLOOD UREA NITROGEN 11 mg/dL (7-20); CALCIUM 10.3 mg/dL (8.4-10.2); CARBON DIOXIDE 31 mmol/L (22-30); CHLORIDE 101 mmol/L (98-107); CREATINE KINASE 57 U/L (55-170); GLUCOSE 91 mg/dL (75-110); SODIUM 140.4 mmol/L (137-145); TOTAL PROTEIN 7.8 g/dL (6.3-8.2)
[2019-02-13 15:11] LABS: URINE AMPHETAMINES SCREEN NEGATIVE; URINE BARBITURATES SCREEN NEGATIVE; URINE BENZODIAZEPINES SCREEN NEGATIVE; URINE COCAINE SCREEN NEGATIVE; URINE MARIJUANA (THC) SCREEN UNCONFIRMED POSITIVE; URINE METHADONE SCREEN NEGATIVE; URINE PHENCYCLIDINE SCREEN NEGATIVE
[2019-02-13 15:20] LABS: CREATINE KINASE MB 0.62 ng/mL (<4.55)
[2019-02-13 15:22] LABS: TROPONIN I < 0.012 ng/mL
[2019-02-13] MEDS ORDERED: ACETAMINOPHEN 325 MG TABLET PO ONE (17:01)
[2019-02-13] MEDS ORDERED: NORMAL SALINE 1000 ML 1,000 ML IV ONE (17:01)
--- NOTE | 2019-02-13 17:06 | ER Document Report ---
ED Cardiac - General Chief Complaint: Chest Pain Stated Complaint: CHEST PAIN Time Seen by Provider: 02/13/19 13:17 Mode of Arrival: Wheelchair Information source: Patient Notes: This is a 33-year-old man with a history of COPD and anxiety who presents to the emergency room with intermittent left-sided chest pain. Patient states that he had a syncopal episode 2 nights ago. He states that the time he all of a sudden felt very hot. He states he has not had air conditioner. He states that since that time he has not felt right. He denies any fever chills. He denies any shortness of breath. He does have a history of asthma. TRAVEL OUTSIDE OF THE [place] IN LAST 30 DAYS: No - HPI Patient complains to provider of: Chest pain Use of: denies: Alcohol, Amphetamines, Bath salts, Caffeine, Cocaine, Dec ongestants, Other Was the onset of pain: Sudden Is the pain a: Chronic problem Chest pain location: Under breast Quality of pain: Constant Chest pain radiation location: denies: Left jaw, Left arm, Left shoulder, Right jaw, Right arm, Right shoulder, Back, Neck, None Severity now: Mild Severity at worst: Moderate Pain level currently: Denies Chest pain precipitating factors: All the time Cardiac risk factors: None Positive cardiac history: No Associated symptoms: Syncope Exacerbated by: Denies Relieved by: Nothing Similar symptoms previously: Yes Recently seen / treated by doctor: No - Related Data Allergies/Adverse Reactions: ketorolac tromethamine [From Toradol] Allergy (Verified 01/21/18 18:45) sulfamethoxazole [From Bactrim] Allergy (Verified 01/21/18 18:45) tramadol [Tramadol] Allergy (Verified 01/21/18 18:45) trimethoprim [From Bactrim] Allergy (Verified 01/21/18 18:45) methocarbamol [From Robaxin] Adverse Reaction (Verified 01/21/18 18:45) Hives Past Medical History - General Information source: Patient - Social History Smoking Status: Former Smoker Cigarette use (# per day): No Chew tobacco use (# tins/day): No Frequency of alcohol use: None Drug Abuse: None Lives with: Friend Family History: Reviewed & Not Pertinent Patient has suicidal ideation: No Patient has homicidal ideation: No - Past Medical History Cardiac Medical History: Reports: Hx Coronary Artery Disease, Hx DVT - Multiple; last 2014. Took himself off his systemic anticoagulant., Hx Heart Attack - September 2014. Denies: Hx Hypercholesterolemia, Hx Pulmonary Embolism Pulmonary Medical History: Reports: Hx Asthma, Hx COPD Neurological Medical History: Reports: Hx Cerebrovascular Accident. Denies: Hx Seizures Endocrine Medical History: Denies: Hx Diabetes Mellitus Type 1, Hx Diabetes Mellitus Type 2, Hx Hyperthyroidism, Hx Hypothyroidism Renal/ Medical History: Reports: Hx Kidney Stones. Denies: Hx Peritoneal Dialysis GI Medical History: Denies: Hx Cirrhosis, Hx Gastroesophageal Reflux Disease, Hx Hepatitis Musculoskeletal Medical History: Reports Hx Arthritis Psychiatric Medical History: Denies: Hx Depression Infectious Medical History: Denies: Hx Hepatitis Past Surgical History: Reports: Hx Orthopedic Surgery - Knee and toe, Other - Dental surgery - Immunizations Hx Diphtheria, Pertussis, Tetanus Vaccination: No Review of Systems - Review of Systems Constitutional: denies: Chills, Fever EENT: No symptoms reported Cardiovascular: See HPI, Chest pain, Syncope Respiratory: No symptoms reported Gastrointestinal: No symptoms reported Genitourinary: No symptoms reported Male Genitourinary: No symptoms reported Musculoskeletal: No symptoms reported Skin: No symptoms reported Hematologic/Lymphatic: No symptoms reported Neurological/Psychological: No symptoms reported Physical Exam - Vital signs Vitals: Temp Pulse Resp BP Pulse Ox 98.1 F 78 16 144/91 H 97 02/13/19 12:15 02/13/19 12:15 02/13/19 12:15 02/13/19 12:15 02/13/19 12:15 Notes: Physical exam: GENERAL: Patient is alert and oriented x3, no acute distress HEAD: Atraumatic, normocephalic. EYES: Pupils equal round and reactive to light, extraocular movements intact, sclera anicteric, conjunctiva are normal. ENT: TMs normal, nares patent, oropharynx clear without exudates. Moist mucous membranes. NECK: Normal range of motion, supple without obvious mass or JVD. LUNGS: Scattered wheezes bilaterally HEART: Regular rate and rhythm without murmurs, rubs or gallops. ABDOMEN: Soft, normoactive bowel sounds. No tenderness to palpation. No guarding, no rebound. No masses appreciated. EXTREMITIES: Normal range of motion, no pitting or edema. No clubbing or cyanosis. NEUROLOGICAL: Cranial nerves II through XII grossly intact. Normal speech, moving all extremities. PSYCH: Normal mood, normal affect. SKIN: Warm, Dry, normal turgor, no rashes or lesions noted. Course - Re-evaluation Re-evalutation: 02/13/19 19:16 Note: Patient symptoms sound most likely vasovagal in origin. The event happened 2 days ago. He has had a long history of chest pain on and off which is not exertional. The pain seems to be musculoskeletal in nature. We did observe him sit for several hours and he was fine during that time. Serial troponins were negative. His EKG was normal. I gave him instructions sheet for vasovagal episode. - Vital Signs Vital signs: Temp Pulse Resp BP Pulse Ox 98.1 F 78 16 144/91 H 97 02/13/19 12:15 02/13/19 12:15 02/13/19 12:15 02/13/19 12:15 02/13/19 12:15 - Laboratory Result Diagrams: 02/13/19 14:15 02/13/19 14:15 Laboratory results interpreted by me: 02/13/19 02/13/19 02/13/19 14:15 14:15 14:15 Plt Count 473 H Carbon Dioxide 31 H Calcium 10.3 H Urine Urobilinogen 4.0 H Ur Leukocyte Esterase SMALL H - Diagnostic Test Radiology reviewed: Image reviewed, Reports reviewed - Chest x-ray shows no infiltrates - EKG Interpretation by Me Rate: Normal Rhythm: NSR - EKG shows normal sinus rhythm with a ventricular rate of 73, no acute ST-T wave changes Discharge - Discharge Clinical Impression: Vasovagal Condition: Stable Disposition: HOME, SELF-CARE Instructions: Vasovagal Symptoms ([facility]) Additional Instructions: I want you to read the sheet on vasovagal symptoms. Stay well-hydrated. Use the inhaler as needed. Follow-up with your doctor. I left the number for the [facility] on the chart. Return to the emergency room for worsening pain, passing out or any concerns or getting worse.
[2019-02-13] MEDS ORDERED: ALBUTEROL SULFATE HFA (90 MCG/PUFF) 8 GM MDI (1 MDI/ER DISP) IH PRN (18:01)
--- NOTE | 2019-02-13 19:16 | EKG REPORT ---
SEVERITY:- NORMAL ECG - SINUS RHYTHM : Confirmed by: Piper Berger MD 13-Feb-2019 19:15:36
[2019-02-13 19:26] VITALS: BP 136/78
== END 2019-02-13 19:26 | disposition home or self-care (01) ==
LOC: ER 12:13
DX: R55 Syncope and collapse (principal); R07.9 Chest pain, unspecified; J44.9 Chronic obstructive pulmonary disease, unspecified; I25.10 Atherosclerotic heart disease of native coronary artery without angina pectoris; I25.2 Old myocardial infarction; Z88.8 Allergy status to other drugs, medicaments and biological substances; Z88.1 Allergy status to other antibiotic agents; Z88.5 Allergy status to narcotic agent
CPT/HCPCS: 93005; 99285; 96360; 36415; 87086; 82553; 82550; 85025; 80053; 81001; 84484; 80307; 71046; 93010; J7030; J3490

== ENCOUNTER 2019-04-23 11:03 | Emergency (ER) | payer SELFPAY ==
[2019-04-23] MEDS ORDERED: ONDANSETRON 4 MG TAB.RAPDIS PO ONE (11:51)
--- NOTE | 2019-04-23 11:53 | ER Document Report ---
ED Medical Screen (RME) - General Chief Complaint: Arm Pain Stated Complaint: RIGHT ARM PAIN Time Seen by Provider: 04/23/19 11:48 Mode of Arrival: Ambulatory Information source: Patient Notes: Patient presents complaining of right upper extremity pain for the past month. Patient also complains of nausea today. Patient denies any fever or injury. Patient does report a history of DVTs in the past. hx: DVT, CVA, asthma, COPD I have greeted and performed a rapid initial assessment of this patient. A comprehensive ED assessment and evaluation of the patient, analysis of test results and completion of the medical decision making process will be conducted by additional ED providers. TRAVEL OUTSIDE OF THE [place] IN LAST 30 DAYS: No - Related Data Allergies/Adverse Reactions: ketorolac tromethamine [From Toradol] Allergy (Verified 04/23/19 11:04) sulfamethoxazole [From Bactrim] Allergy (Verified 04/23/19 11:04) tramadol [Tramadol] Allergy (Verified 04/23/19 11:04) trimethoprim [From Bactrim] Allergy (Verified 04/23/19 11:04) methocarbamol [From Robaxin] Adverse Reaction (Verified 04/23/19 11:04) Hives Past Medical History - Past Medical History Cardiac Medical History: Reports: Hx Coronary Artery Disease, Hx DVT - Multiple; last 2014. Took himself off his systemic anticoagulant., Hx Heart Attack - September 2014. Denies: Hx Hypercholesterolemia, Hx Pulmonary Embolism Pulmonary Medical History: Reports: Hx Asthma, Hx COPD Neurological Medical History: Reports: Hx Cerebrovascular Accident. Denies: Hx Seizures Endocrine Medical History: Denies: Hx Diabetes Mellitus Type 1, Hx Diabetes Mellitus Type 2, Hx Hyperthyroidism, Hx Hypothyroidism Renal/ Medical History: Reports: Hx Kidney Stones. Denies: Hx Peritoneal Dialysis GI Medical History: Denies: Hx Cirrhosis, Hx Gastroesophageal Reflux Disease, Hx Hepatitis Musculoskeltal Medical History: Reports Hx Arthritis Psychiatric Medical History: Denies: Hx Depression Infectious Medical History: Denies: Hx Hepatitis Past Surgical History: Reports: Hx Orthopedic Surgery - Knee and toe, Other - Dental surgery - Immunizations Hx Diphtheria, Pertussis, Tetanus Vaccination: No History of Influenza Vaccine for 05/2017 - 10/2017 Season: No Physical Exam - Vital signs Vitals: Temp Pulse Resp BP Pulse Ox 98.4 F 72 18 137/93 H 100 04/23/19 11:04 04/23/19 11:04 04/23/19 11:04 04/23/19 11:04 04/23/19 11:04 - General General appearance: Appears well, Alert Notes: Tenderness to the right upper extremity primarily to the volar aspect of right forearm Course - Vital Signs Vital signs: Temp Pulse Resp BP Pulse Ox 98.4 F 72 18 137/93 H 100 04/23/19 11:04 04/23/19 11:04 04/23/19 11:04 04/23/19 11:04 04/23/19 11:04
--- NOTE | 2019-04-23 15:15 | ER Document Report ---
ED Extremity Problem, Upper - General Chief Complaint: Arm Pain Stated Complaint: RIGHT ARM PAIN Time Seen by Provider: 04/23/19 11:48 Primary Care Provider: [facility] [Provider Group] - Follow up as needed Mode of Arrival: Ambulatory Information source: Patient Notes: 33-year-old male presented to ED for complaint of right upper extremity pain for the last month. He states he also complains of some nausea. He states he also has a history of COPD and does not have any more inhaler. He is asked what I write him a prescription for his inhaler. He was seen by another provider who ordered a Doppler. There is no DVT in the arm according to the Doppler. He does have a report of a history of multiple DVTs which actually caused a heart attack and a stroke. Patient does have muscular tenderness to the lateral right neck and shoulder upper back and pain down his arm. He states he has been using ibuprofen ice packs and warm packs and no relief. He states he did not have any insurance but now is gotten his Social Security for disability and he should be getting Medicaid so he came to the emergency room to find it was going on. TRAVEL OUTSIDE OF THE [place] IN LAST 30 DAYS: No - HPI Patient complains to provider of: Pain, Swelling - Patient states swelling, Right, Arm, Shoulder, Other - Right lateral neck and upper back Onset: Other - Over a month Recent injury: No Quality of pain: Achy, Sharp Pain Level: 3 Associated symptoms: Nausea Exacerbated by: Movement, Exertion Relieved by: Rest, Positioning Similar symptoms previously: Yes Recently seen / treated by doctor: No - Related Data Allergies/Adverse Reactions: ketorolac tromethamine [From Toradol] Allergy (Verified 04/23/19 11:04) sulfamethoxazole [From Bactrim] Allergy (Verified 04/23/19 11:04) tramadol [Tramadol] Allergy (Verified 04/23/19 11:04) trimethoprim [From Bactrim] Allergy (Verified 04/23/19 11:04) methocarbamol [From Robaxin] Adverse Reaction (Verified 04/23/19 11:04) Hives Past Medical History - General Information source: Patient - Social History Smoking Status: Former Smoker Frequency of alcohol use: None Drug Abuse: Marijuana Occupation: Disability Family History: Reviewed & Not Pertinent Patient has suicidal ideation: No Patient has homicidal ideation: No - Past Medical History Cardiac Medical History: Reports: Hx Coronary Artery Disease, Hx DVT - Multiple; last 2014. Took himself off his systemic anticoagulant., Hx Heart Attack - September 2014. Pulmonary Medical History: Reports: Hx Asthma, Hx COPD, Hx Pneumonia EENT Medical History: Reports: None Neurological Medical History: Reports: Hx Cerebrovascular Accident. Denies: Hx Seizures Endocrine Medical History: Reports: Other - Hypoglycemia Renal/ Medical History: Reports: Hx Kidney Stones Malignancy Medical History: Reports None GI Medical History: Reports: None Musculoskeletal Medical History: Reports Hx Arthritis, Reports Hx Musculoskeleta l Deformity, Reports Hx Musculoskeletal Trauma Skin Medical History: Reports None Psychiatric Medical History: Reports: None Traumatic Medical History: Reports: None Past Surgical History: Reports: Hx Oral Surgery - Dental surgery, Hx Orthopedic Surgery - Knee meniscus and toe nail - Immunizations Hx Diphtheria, Pertussis, Tetanus Vaccination: No Review of Systems - Review of Systems Constitutional: No symptoms reported EENT: No symptoms reported Cardiovascular: No symptoms reported Respiratory: No symptoms reported Gastrointestinal: No symptoms reported Genitourinary: No symptoms reported Male Genitourinary: No symptoms reported Musculoskeletal: Muscle pain - Right upper back, shoulder, arm, Muscle stiffness Skin: No symptoms reported Hematologic/Lymphatic: No symptoms reported Neurological/Psychological: No symptoms reported -: Yes All other systems reviewed and negative Physical Exam - Vital signs Vitals: Temp Pulse Resp BP Pulse Ox 98.4 F 72 18 137/93 H 100 04/23/19 11:04 04/23/19 11:04 04/23/19 11:04 04/23/19 11:04 04/23/19 11:04 Interpretation: Normal - General General appearance: Appears well, Alert - HEENT Head: Normocephalic, Atraumatic Eyes: Normal Pupils: PERRL Ears: Normal External canal: Normal Tympanic membrane: Normal Sinus: Normal Nasal: Normal Mouth/Lips: Normal Mucous membranes: Normal Pharynx: Normal Neck: Normal - Respiratory Respiratory status: No respiratory distress Chest status: Nontender Breath sounds: Normal Chest palpation: Normal - Cardiovascular Rhythm: Regular Heart sounds: Normal auscultation Murmur: No - Abdominal Inspection: Normal Distension: No distension Bowel sounds: Normal Tenderness: Nontender Organomegaly: No organomegaly - Back Back: Normal, Nontender - Extremities General upper extremity: Normal inspection, Normal color, Normal ROM, Normal temperature General lower extremity: Normal inspection, Nontender, Normal color, Normal ROM, Normal temperature, Normal weight bearing. No: Dwight's sign Shoulder: Tender. No: Abrasion, Deformity, Dislocation, Ecchymosis, Instability, Laceration, Limited ROM Arm: Tender. No: Abrasion, Deformity, Ecchymosis, Instability, Laceration Elbow: Tender. No: Abrasion, Deformity, Dislocation, Ecchymosis, Instability, Joint effusion, Laceration, Limited ROM, Swollen bursa Forearm: Tender. No: Abrasion, Deformity, Ecchymosis, Instability, Laceration, Other - Neurological Neuro grossly intact: Yes Cognition: Normal Orientation: AAOx4 [place] Coma Scale Eye Opening: Spontaneous [place] Coma Scale Verbal: Oriented [place] Coma Scale Motor: Obeys Commands [place] Coma Scale Total: 15 Speech: Normal Motor strength normal: LUE, RUE, LLE, RLE Sensory: Normal - Psychological Associated symptoms: Normal affect, Normal mood - Skin Skin Temperature: Warm Skin Moisture: Dry Skin Color: Normal Course - Re-evaluation Re-evalutation: 04/23/19 15:21 Doppler was negative for DVT to the right upper extremity. Patient does have muscle tenderness to the right lateral neck right upper back right shoulder and right upper arm elbow and forearm. There is no swelling bruising or discoloration he has had this pain for about a month. I have prescribed him some muscle relaxers he will continue to take his ibuprofen I will also prescribe him a albuterol inhaler for his COPD and have him follow-up with primary orthopedics and his ground control approach technician. He verbalized understanding and agreement with treatment plan - Vital Signs Vital signs: Temp Pulse Resp BP Pulse Ox 98.2 F 63 18 128/89 H 98 04/23/19 15:34 04/23/19 15:34 04/23/19 11:04 04/23/19 15:34 04/23/19 15:34 Discharge - Discharge Clinical Impression: Right upper limb pain, Neck pain on right side, Chronic COPD needs an inhaler Right shoulder pain Qualifiers: Chronicity: chronic Qualified Code(s): M25.511 - Pain in right shoulder Condition: Stable Disposition: HOME, SELF-CARE Instructions: Family Physicians / Practices Additional Instructions: Myalagia (Muscle Pain) Myalgia is pain in the muscles. We use the word myalgia to describe muscle pain where there's no history of injury, no known muscle disease, and the muscles are normal to examination. Myalgias can be a symptom of an acute illness, such as influenza, hepatitis, or any viral illness, especially with fever. Sometimes the muscle pain comes before any other symptoms. Myalgia can also be an early symptom of inflammatory muscle disease, such as lupus. If myalgia is accompanied by an acute illness that explains the muscle pain, then no further testing needs to be done. When there's no clear reason for the pain, tests may be done to see if there's an inflammatory or other disease of the muscles. The usual treatment for myalgias is anti-inflammatory medication, such as ibuprofen. Muscle aches may be soothed with a heating pad or hot compress. If muscles remain painful for more than a few days, you'll need testing and followup. Return if a muscle becomes swollen, red, or severely painful. Muscle Relaxers Muscle relaxing medications are usually prescribed for acute muscle spasm or injury to the neck and back. They are often combined with antiinflammatory pain medication for increased relief. You may stop the muscle relaxer when the pain and stiffness have improved. Start the medication again if spasms recur. Muscle relaxers may cause drowsiness, especially with the first dose. Do not operate machinery or drive while under the effects of the medication. Most muscle relaxers last up to 24 hours. Do not combine the medication with alcohol. Ibuprofen Ibuprofen is an excellent, safe drug for pain control. In addition, it has potent antiinflammatory effects which are beneficial, especially in the treatment of injuries, arthritis, or tendonitis. It's best to take ibuprofen with food. Persons with ulcer disease or allergy to aspirin should notify their physician of this before taking ibuprofen. Take the medication exactly as prescribed. Don't take additional doses unless instructed to do so by your doctor. If you develop wheezing, shortness of breath, hives, faintness, stomach pain, vomiting, or dark black stools, return for re-evaluation at once. Not take more than 800 mg of ibuprofen at one time and do not take more than 400 mg in a 24-hour. That means 3 800 mg ibuprofens and a 24-hour. Please do not take 3 800 mg tablets every day for more than a couple days as this will injure your kidneys. Ice Packs Apply ice packs frequently against the painful area. Many different schedules are recommended, such as "20 minutes on, 20 minutes off" or "one hour ice, two hours rest." If you need to work, you may need to go longer between ice treatments. You should plan to have the area ice packed AT LEAST one fourth of the time. The ice should be applied over the wrap, tape, or splint, or over a layer of cloth -- not directly against the skin. Some ice bags have a built-in cloth and can be put directly on the skin. Warm Packs After approximately two days, apply gentle heat (such as a heating pad or hot water bottle) for about 20 to 30 minutes about every two hours -- at least four times daily. Warmth and elevation will help you make a more rapid recovery, and will ease the pain considerably. Do not use HOT heat, and never apply heat for longer than 30 minutes. The continuous heat can invisibly damage skin and muscles -- even when no burn is seen on the surface. Damaged muscles can make you MORE sore. FOLLOW-UP CARE: If you have been referred to a physician for follow-up care, call the physicians office for an appointment as you were instructed or within the next two days. If you experience worsening or a significant change in your symptoms, notify the physician immediately or return to the Emergency Department at any time for re-evaluation. These follow-up with a primary doctor, ground control approach technician, and an non destructive testing specialist. Also need a senior product development manager for your COPD Prescriptions: Albuterol Sulfate [Albuterol Sulfate Hfa] 18 gm IH Q4HP PRN #1 [email or web address] PRN Reason: For Wheezing Cyclobenzaprine HCl [Flexeril 10 mg Tablet] 10 mg PO TIDP PRN #15 tab PRN Reason: For Pain Scale 3-5 Forms: Elevated Blood Pressure Referrals: [facility] [Provider Group] - Follow up as needed
[2019-04-23 15:36] VITALS: BP 128/89
--- NOTE | 2019-04-23 16:49 | XCELERA REPORT ---
[address] [address] Upper Extremity Venous Evaluation Name: REECE MERRITTRIAN JR Age: 33 yrs Gender: Male : 1985 Patient Status: Emergency Patient Location: ER Study Date: 04/23/2019 02:37 PM Procedure: Unilateral duplex scan of the right upper extremity veins was performed, including responses to compression and other maneuvers. Reason For Study: RUE pain Ordering Physician: BEKAH RODRIGUEZ Performed By: Sourav Hein Right Side Venous Evaluation Normal vessel filling wall to wall, compression and augmentation as well as Colour flow down to the forearm veins. Interpretation Summary No duplex evidence of DVT or obstruction in the right upper extremity. : BEKAH RODRIGUEZ > Claudio Contreras
== END 2019-04-23 15:37 | disposition home or self-care (01) ==
LOC: ER 11:03
DX: J44.9 Chronic obstructive pulmonary disease, unspecified (principal); M79.601 Pain in right arm; M54.2 Cervicalgia; R11.0 Nausea; Z88.6 Allergy status to analgesic agent; Z88.3 Allergy status to other anti-infective agents; Z86.718 Personal history of other venous thrombosis and embolism; Z87.442 Personal history of urinary calculi; I25.2 Old myocardial infarction; M25.511 Pain in right shoulder
CPT/HCPCS: 99284; 93971 ×2; S0119

== ENCOUNTER → 2019-07-08 | Outpatient (CLI) | payer MEDICAID ==
--- NOTE | 2019-07-08 12:05 | RADIOLOGY REPORT (SQ) ---
EXAM DESCRIPTION: CHEST PA/LATERAL COMPLETED DATE/TIME: 07/08/2019 11:53 am REASON FOR STUDY: COPD; ACUTE BRONCHITIS COMPARISON: 02/13/2019 EXAM PARAMETERS: NUMBER OF VIEWS: two views TECHNIQUE: Digital Frontal and Lateral radiographic views of the chest acquired. RADIATION DOSE: NA LIMITATIONS: none FINDINGS: LUNGS AND PLEURA: No opacities, masses or pneumothorax. No pleural effusion. MEDIASTINUM AND HILAR STRUCTURES: No masses or contour abnormalities. HEART AND VASCULAR STRUCTURES: Heart normal size. No evidence for failure. BONES: No acute findings. HARDWARE: None in the chest. OTHER: No other significant finding. IMPRESSION: NO SIGNIFICANT RADIOGRAPHIC FINDING IN THE CHEST. TECHNICAL DOCUMENTATION: JOB ID: [id number]- All Rights Reserved Reading location - IP/workstation name: [email or web address]
== END ==
LOC: OD 11:40
PROVIDERS: ATTEND Family Medicine Geriatric Medicine
DX: J20.9 Acute bronchitis, unspecified (principal); J44.0 Chronic obstructive pulmonary disease with (acute) lower respiratory infection
CPT/HCPCS: 71046

== ENCOUNTER 2019-08-21 20:17 | Emergency (ER) | payer MEDICAID ==
--- NOTE | 2019-08-21 21:54 | ER Document Report ---
ED Medical Screen (RME) - General Chief Complaint: Numbness Stated Complaint: LEG NUMBNESS Time Seen by Provider: 08/21/19 21:27 Primary Care Provider: JUAN HOWARD MD [Primary Care Provider] - Follow up as needed Notes: Patient is a 34-year-old male who presents emergency department with a chief complaint of bilateral lower extremity numbness. Patient reports on Genaro Samuel which was 3 days ago he developed numbness to both of his feet. Patient reports since then and over the past 3 days this has gradually started to go up his legs and now he feels numb from the waist down. Patient reports he is havin g some numbness around the groin area but denies loss of bowel or bladder. Patient reports he does have a history of blood clots with his last DVT being in the right lower extremity. Patient is currently on warfarin for this. Patient reports that he is currently awaiting surgery for a fracture in his neck. Patient reports that he found out he had a fracture in his neck months ago. Patient reports there is no injury from this but he just woke up with pain. Patient denies recent fever or illness. Patient denies any new medications. Patient states he is not an IV drug user and does smoke marijuana recreationally. TRAVEL OUTSIDE OF THE [place] IN LAST 30 DAYS: No - Related Data Allergies/Adverse Reactions: ketorolac tromethamine [From Toradol] Allergy (Verified 04/23/19 11:04) sulfamethoxazole [From Bactrim] Allergy (Verified 04/23/19 11:04) tramadol [Tramadol] Allergy (Verified 04/23/19 11:04) trimethoprim [From Bactrim] Allergy (Verified 04/23/19 11:04) methocarbamol [From Robaxin] Adverse Reaction (Verified 04/23/19 11:04) Hives Home Medications: LISINOPRIL, METHOCARBAMOL, PRAVASTATIN, GABAPENTIN, BACLOFEN, CITALOPRAM, WARFARIN, ADVAIR, ALBUTEROL, NITRO Past Medical History - Social History Drug Abuse: Marijuana - Past Medical History Cardiac Medical History: Reports: Hx Coronary Artery Disease, Hx DVT - Multiple; last 2014. Took himself off his systemic anticoagulant., Hx Heart Attack - September 2014. Denies: Hx Hypercholesterolemia, Hx Pulmonary Embolism Pulmonary Medical History: Reports: Hx Asthma, Hx COPD, Hx Pneumonia Neurological Medical History: Reports: Hx Cerebrovascular Accident. Denies: Hx Seizures Endocrine Medical History: Denies: Hx Diabetes Mellitus Type 1, Hx Diabetes Mellitus Type 2, Hx Hyperthyroidism, Hx Hypothyroidism Renal/ Medical History: Reports: Hx Kidney Stones. Denies: Hx Peritoneal Dialysis GI Medical History: Denies: Hx Cirrhosis, Hx Gastroesophageal Reflux Disease, Hx Hepatitis Musculoskeltal Medical History: Reports Hx Arthritis, Reports Hx Musculoskeletal Deformity, Reports Hx Musculoskeletal Trauma Psychiatric Medical History: Denies: Hx Depression Infectious Medical History: Denies: Hx Hepatitis Past Surgical History: Reports: Hx Oral Surgery - Dental surgery, Hx Orthopedic Surgery - Knee meniscus and toe nail, Other - Dental surgery - Immunizations Hx Diphtheria, Pertussis, Tetanus Vaccination: No Physical Exam - Vital signs Vitals: Temp Pulse Resp BP Pulse Ox 98.5 F 78 18 134/89 H 99 08/21/19 20:58 08/21/19 20:58 08/21/19 20:58 08/21/19 20:58 08/21/19 20:58 Course - Re-evaluation Re-evalutation: 08/21/19 21:54 I have greeted and performed a rapid initial assessment of this patient. A comprehensive ED assessment and evaluation of the patient, analysis of test results and completion of the medical decision making process will be conducted by additional ED providers. - Vital Signs Vital signs: Temp Pulse Resp BP Pulse Ox 98.5 F 78 18 134/89 H 99 08/21/19 20:58 08/21/19 20:58 08/21/19 20:58 08/21/19 20:58 08/21/19 20:58 Doctor's Discharge - Discharge Referrals: JUAN HOWARD MD [Primary Care Provider] - Follow up as needed
[2019-08-21 22:51] LABS: ABSOLUTE BASOPHILS # (AUTO) 0.1 10^3/uL (0.0-0.2); ABSOLUTE EOSINOPHILS # (AUTO) 0.7 10^3/uL (0.0-0.6); ABSOLUTE LYMPHOCYTES (AUTO) 2.7 10^3/uL (0.5-4.7); ABSOLUTE NEUT (AUTO) 7.7 10^3/uL (1.7-8.2); BASOPHILS % (AUTO) 0.9 % (0-2); EOSINOPHILS % (AUTO) 5.7 % (0-6); HEMATOCRIT 44.6 % (37.9-51.0); HEMOGLOBIN 15.2 g/dL (13.5-17.0); LYMPHOCYTES % (AUTO) 22.2 % (13-45); MEAN CORPUSCULAR HEMOGLOBIN 31.4 pg (27.0-33.4); MEAN CORPUSCULAR HGB CONC 34.1 g/dL (32.0-36.0); MEAN CORPUSCULAR VOLUME 92 fl (80-97); MONOCYTES % (AUTO) 8.1 % (3-13); PLATELET COUNT 447 10^3/uL (150-450); RED BLOOD COUNT 4.84 10^6/uL (4.35-5.55); RED CELL DISTRIBUTION WIDTH 13.7 % (11.5-14.0); SEGMENTED NEUTROPHILS % (AUTO) 63.1 % (42-78); TOTAL CELLS COUNTED % (AUTO) 100 %; WHITE BLOOD COUNT 12.2 10^3/uL (4.0-10.5)
[2019-08-21 23:01] LABS: ALBUMIN 4.6 g/dL (3.5-5.0); ALKALINE PHOSPHATASE 63 U/L (38-126); ANION GAP 12 (5-19); ASPARTATE AMINO TRANSFERASE 24 U/L (17-59); BILIRUBIN,DIRECT 0.2 mg/dL (0.0-0.4); BILIRUBIN,TOTAL 0.6 mg/dL (0.2-1.3); BLOOD UREA NITROGEN 12 mg/dL (7-20); CALCIUM 9.9 mg/dL (8.4-10.2); CARBON DIOXIDE 28 mmol/L (22-30); CHLORIDE 98 mmol/L (98-107); CREATINE KINASE 133 U/L (55-170); GLUCOSE 85 mg/dL (75-110); POTASSIUM 3.9 mmol/L (3.6-5.0); TOTAL PROTEIN 7.7 g/dL (6.3-8.2)
[2019-08-21 23:04] LABS: INTERNATIONAL RATION (INR) 1.94; PROTHROMBIN TIME 22.4 SEC (11.4-15.4)
[2019-08-21 23:13] LABS: CREATINE KINASE MB 2.16 ng/mL (<4.55)
[2019-08-21 23:14] LABS: TROPONIN I < 0.012 ng/mL
--- NOTE | 2019-08-22 00:09 | ER Document Report ---
ED Extremity Problem, Lower - General Chief Complaint: Numbness Stated Complaint: LEG NUMBNESS Time Seen by Provider: 08/21/19 21:27 Primary Care Provider: JUAN HOWARD MD [Primary Care Provider] - Follow up as needed Mode of Arrival: Medic Information source: Patient TRAVEL OUTSIDE OF THE [place] IN LAST 30 DAYS: No - HPI Patient complains to provider of: Pain, Other - Complains of pain in his neck and that radiates down through his back and noted decreased sensation and motor skills in lower extremities from the waist down. Patient denies any new trauma. States in the past 2 days he has noted that he is losing his ability to walk and bear weight and has been sliding and scaling himself as he walks through his house. Patient states he knows he has a fractures in his cervical spine and thinks that that is most likely the cause of his new findings of neurological loss of sensation and motor skills of lower extremities. Denies any fever or chills. Denies any problems with bowel or bladder at this time. Patient states he is followed by a spine doctor and is planning to have surgery on his cervical spine in the near future. Location: Back Occurred: Other - A few days ago Where: Home - No new trauma. Patient states he has known MRI proof of cervical spine fractures. Onset/Duration: Gradual Quality of pain: Achy Severity: Moderate Pain Level: 4 Context: Other - No recent trauma Recent injury: No Exacerbated by: Movement - Related Data Allergies/Adverse Reactions: ketorolac tromethamine [From Toradol] Allergy (Verified 04/23/19 11:04) sulfamethoxazole [From Bactrim] Allergy (Verified 04/23/19 11:04) tramadol [Tramadol] Allergy (Verified 04/23/19 11:04) trimethoprim [From Bactrim] Allergy (Verified 04/23/19 11:04) methocarbamol [From Robaxin] Adverse Reaction (Verified 04/23/19 11:04) Hives Home Medications: LISINOPRIL, METHOCARBAMOL, PRAVASTATIN, GABAPENTIN, BACLOFEN, CITALOPRAM, WARFARIN, ADVAIR, ALBUTEROL, NITRO Past Medical History - Social History Smoking Status: Former Smoker Drug Abuse: Marijuana Family History: Reviewed & Not Pertinent Patient has suicidal ideation: No Patient has homicidal ideation: No - Past Medical History Cardiac Medical History: Reports: Hx Coronary Artery Disease, Hx DVT - Multiple; last 2014. Took himself off his systemic anticoagulant., Hx Heart Attack - September 2014. Denies: Hx Hypercholesterolemia, Hx Pulmonary Embolism Pulmonary Medical History: Reports: Hx Asthma, Hx COPD, Hx Pneumonia Neurological Medical History: Reports: Hx Cerebrovascular Accident. Denies: Hx Seizures Endocrine Medical History: Denies: Hx Diabetes Mellitus Type 1, Hx Diabetes Mellitus Type 2, Hx Hyperthyroidism, Hx Hypothyroidism Renal/ Medical History: Reports: Hx Kidney Stones. Denies: Hx Peritoneal Dialysis GI Medical History: Denies: Hx Cirrhosis, Hx Gastroesophageal Reflux Disease, Hx Hepatitis Musculoskeletal Medical History: Reports Hx Arthritis, Reports Hx Musculoskeletal Deformity, Reports Hx Musculoskeletal Trauma Psychiatric Medical History: Denies: Hx Depression Infectious Medical History: Denies: Hx Hepatitis Past Surgical History: Reports: Hx Oral Surgery - Dental surgery, Hx Orthopedic Surgery - Knee meniscus and toe nail, Other - Dental surgery - Immunizations Hx Diphtheria, Pertussis, Tetanus Vaccination: No Physical Exam - Vital signs Vitals: Temp Pulse Resp BP Pulse Ox 98.5 F 78 18 134/89 H 99 08/21/19 20:58 08/21/19 20:58 08/21/19 20:58 08/21/19 20:58 08/21/19 20:58 Interpretation: Normal - General General appearance: Appears well, Alert - HEENT Head: Normocephalic, Atraumatic Eyes: Normal Pupils: PERRL - Respiratory Respiratory status: No respiratory distress Chest status: Nontender Breath sounds: Normal Chest palpation: Normal - Cardiovascular Rhythm: Regular Heart sounds: Normal auscultation Murmur: No - Abdominal Inspection: Normal Distension: No distension Bowel sounds: Normal Tenderness: Nontender Organomegaly: No organomegaly - Rectal Tenderness: No - Sphincter tone normal Stool: Heme negative Hemorrhoids: None Prostate: Normal - Back Back: Normal, Nontender, Tender, Other - Tenderness in the midline lower lumbar region - Extremities General upper extremity: Normal inspection, Nontender, Normal color, Normal ROM, Normal temperature General lower extremity: Normal inspection, Nontender, Normal color, Normal ROM, Normal temperature, Normal weight bearing. No: Dwight's sign - Neurological Neuro grossly intact: Yes Cognition: Normal Orientation: AAOx4 Racquel Coma Scale Eye Opening: Spontaneous Racquel Coma Scale Verbal: Oriented [place] Coma Scale Motor: Obeys Commands T[place]en Coma Scale Total: 15 Speech: Normal Cranial nerves: Normal Cerebellar coordination: Normal Motor strength normal: LUE, RUE, LLE - Grade 0-0.5 strength in both lower extremities. Unable to lift legs off of the gurney. Decreased sensation to touch, light touch, and pinprick from the feet up to the L2-3 distribution in both legs., RLE Additional motor exam normals: Equal etl architect Babinski reflex: Normal (flexor plantar) Sensory: Normal Biceps - Reflex grade: 0 = Absent Knee - Reflex grade: 0 = Absent Ankle - Reflex grade: 0 = Absent - Psychological Associated symptoms: Normal affect, Normal mood - Skin Skin Temperature: Warm Skin Moisture: Dry Skin Color: Normal Course - Re-evaluation Re-evalutation: 08/22/19 06:53 I had multiple discussions with the patient regarding transfer to another facility that has neurology services available to begin treatments for his 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 Patient refuses to go to any other hospital because of distance from [place]. The only facility he would consider was [facility] in [place] and they did not have neurology coverage for him to be received. I discussed with patient that his condition may deteriorate as opposed to getting better and that if he were not going to accept the transfer that he had to leave against my advice. Patient decided that he was going to go home and continue to take his muscle relaxants and gabapentin and call his doctor to get in as soon as possible. 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
--- NOTE | 2019-08-22 00:14 | RADIOLOGY REPORT (SQ) ---
EXAM DESCRIPTION: CT HEAD WITHOUT IV CONTRAST COMPLETED DATE/TME: 08/21/2019 22:40 CLINICAL HISTORY: lower extremity numbness COMPARISON: None available TECHNIQUE: Axial CT of the head obtained from the skull apex to the skull base without contrast. FINDINGS: No acute intracranial hemorrhage identified. No mass, mass effect, shift of the midline, abnormal extra-axial fluid collection or CT evidence of acute ischemic change identified. The ventricular system is unremarkable. No acute abnormalities of the supratentorial white matter, basal ganglia, cerebellum, or brainstem. Mucosal thickening of the paranasal sinuses. Mastoid air cells are well aerated. No skull fracture identified. Visualized orbits and globes are unremarkable. IMPRESSION: 1. No acute intracranial abnormality identified. This exam was performed according to our departmental dose-optimization program, which includes automated exposure control, adjustment of the mA and/or kV according to patient size and/or use of iterative reconstruction technique.
[2019-08-22] MEDS ORDERED: NORMAL SALINE 1000 ML 1,000 ML IV ONE (01:02)
--- NOTE | 2019-08-22 01:29 | RADIOLOGY REPORT (SQ) ---
EXAM DESCRIPTION: XR CHEST 1 VIEW COMPLETED DATE/TME: 08/22/2019 00:57 CLINICAL HISTORY: 34 years, Male, htn COMPARISON: 07/08/2019 chest NUMBER OF VIEWS: 1 TECHNIQUE: Portable chest LIMITATIONS: None FINDINGS: Heart size normal. Lungs clear. No pneumothorax IMPRESSION: Negative chest copyright 2010 [employer]- All Rights Reserved
--- NOTE | 2019-08-22 02:33 | RADIOLOGY REPORT (SQ) ---
EXAM DESCRIPTION: CT CERVICAL SPINE WITHOUT IV CONTRAST COMPLETED DATE/TME: 08/22/2019 00:59 CLINICAL HISTORY: 34 years, Male, bilat leg numbness COMPARISON: None. TECHNIQUE: 255 Images stored on PACS. All CT scanners at this facility use dose modulation, iterative reconstruction, and/or weight based dosing when appropriate to reduce radiation dose to as low as reasonably achievable (ALARA). [facility]: Dose Right [facility]: CareDose [facility]: Dose Right [facility]: Teradose 4D [facility]: [employer] LIMITATIONS: None. FINDINGS: Evaluation of spinal canal contents limited due to CT technique. However, vertebral body height and alignment is preserved. The disc spaces are maintained. The prevertebral soft tissues are normal IMPRESSION: Unremarkable CT cervical spine TECHNICAL DOCUMENTATION: Quality ID # 436: Final reports with documentation of one or more dose reduction techniques (e.g., Automated exposure control, adjustment of the mA and/or kV according to patient size, use of iterative reconstruction technique) copyright 2011 [employer]- All Rights Reserved
[2019-08-22 02:57] LABS: APPEARANCE,URINE CLEAR; BILIRUBIN,URINE NEGATIVE (NEGATIVE); COLOR,URINE YELLOW; GLUCOSE, URINE NEGATIVE (NEGATIVE); KETONES,URINE NEGATIVE (NEGATIVE); LEUKOCYTE ESTERASE,URINE NEGATIVE (NEGATIVE); NITRITE,URINE NEGATIVE (NEGATIVE); PROTEIN,URINE NEGATIVE (NEGATIVE); URINE SPECIFIC GRAVITY 1.013
[2019-08-22 03:12] LABS: URINE AMPHETAMINES SCREEN NEGATIVE; URINE BARBITURATES SCREEN NEGATIVE; URINE BENZODIAZEPINES SCREEN NEGATIVE; URINE COCAINE SCREEN NEGATIVE; URINE MARIJUANA (THC) SCREEN UNCONFIRMED POSITIVE; URINE METHADONE SCREEN NEGATIVE; URINE PHENCYCLIDINE SCREEN NEGATIVE
--- NOTE | 2019-08-22 05:11 | RADIOLOGY REPORT (SQ) ---
EXAM DESCRIPTION: CT LUMBAR SPINE WITHOUT IV CONTRAST COMPLETED DATE/TME: 08/22/2019 03:53 CLINICAL HISTORY: 34 years, Male, bilateral sensory and motor loss at L2 dermatone COMPARISON: Prior CT 07/02/2015 TECHNIQUE: 328 Images stored on PACS. All CT scanners at this facility use dose modulation, iterative reconstruction, and/or weight based dosing when appropriate to reduce radiation dose to as low as reasonably achievable (ALARA). [facility]: Dose Right [facility]: CareDose [facility]: Dose Right [facility]: Teradose 4D [facility]: [employer] LIMITATIONS: None. FINDINGS: Evaluation of spinal canal contents limited due to CT technique. 5 lumbar type vertebral bodies for the purposes of this exam. Endplate degenerative changes and Schmorl's node deformities at multiple levels, as before. Height and alignment is otherwise preserved. No evidence for fracture or subluxation. Limited evaluation of extraspinal anatomic structures is unremarkable. Diffuse disc bulging with a left paracentral disc protrusion at the L3-4 level resulting in at least moderate central canal stenosis at this level. Hxtq-nv-[id number] neural foraminal narrowing bilaterally at this level. At the L5-S1 level, there is a central broad-based disc protrusion causing ikmo-aw-tgesypjl central canal stenosis. The neural foramina appear widely patent. No other CT evidence for central canal stenosis or neural foraminal compromise IMPRESSION: Stable endplate degenerative changes. 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 Owuh-pj-uvwpcvei neural foraminal narrowing bilaterally at this level. TECHNICAL DOCUMENTATION: Quality ID # 436: Final reports with documentation of one or more dose reduction techniques (e.g., Automated exposure control, adjustment of the mA and/or kV according to patient size, use of iterative reconstruction technique) copyright 2010 [employer]- All Rights Reserved
[2019-08-22] MEDS ORDERED: METHYLPREDNISOLONE INJ 125 MG/2 ML SDV IV ONE (05:30)
[2019-08-22] MEDS ORDERED: IBUPROFEN 800 MG TABLET PO ONE (05:42)
[2019-08-22 06:08] VITALS: BP 125/76
--- NOTE | 2019-08-22 13:46 | EKG REPORT ---
SEVERITY:- OTHERWISE NORMAL ECG - SINUS RHYTHM BORDERLINE LEFT AXIS DEVIATION : Confirmed by: Piper Berger MD 22-Aug-2019 13:45:38
== END 2019-08-22 07:30 | disposition left against medical advice (07) ==
LOC: ER 20:17
DX: M48.061 Spinal stenosis, lumbar region without neurogenic claudication (principal); M54.2 Cervicalgia; F12.10 Cannabis abuse, uncomplicated; I25.10 Atherosclerotic heart disease of native coronary artery without angina pectoris; J44.9 Chronic obstructive pulmonary disease, unspecified; Z79.899 Other long term (current) drug therapy; Z79.01 Long term (current) use of anticoagulants; Z79.51 Long term (current) use of inhaled steroids; Z86.718 Personal history of other venous thrombosis and embolism; Z87.891 Personal history of nicotine dependence; Z88.8 Allergy status to other drugs, medicaments and biological substances; Z88.1 Allergy status to other antibiotic agents; Z88.6 Allergy status to analgesic agent; Z53.29 Procedure and treatment not carried out because of patient's decision for other reasons
CPT/HCPCS: 93005; 99285; 96361; 96374; 36415; 82553; 82962; 80307 ×2; 82550; 85025; 85610; 85730; 80053; 81001; 84484; 71045; 70450; 72125; 72131; 93010; J3490; J2930; J7030

== ENCOUNTER → 2019-11-05 | Outpatient (CLI) | payer MEDICAID ==
[~2019-11-05] MED LIST changes: -ALBUTEROL SULFATE 0.083% NEB 2.5 MG/3 ML AMPUL NEB ONE; +REGADENOSON INJ 0.4 MG/5 ML DISP.SYRIN IV ONE
--- NOTE | 2019-11-05 11:13 | DRAGON STRESS TEST REPORT ---
The patient underwent pharmacological nuclear stress test with regadenoson following standard protocol. The heart rate was 75 beats per meter at baseline) to 109 bpm during regadenoson infusion. The resting blood pressure was 116/68 and increased to 135/73 which is a normal response. The patient developed symptoms of shortness of breath and chest discomfort during the infusion of regadenoson. The resting electrocardiogram demonstrated normal sinus rhythm. There were no ST changes during regadenoson infusion. Myocardial perfusion imaging was performed with technetium 99m sestamibi after the injection of 14.59 mCi. Stress imaging was performed using 45.3 mCi. -The overall quality of the study is good. -Raw images did not demonstrate any significant artifact. -Resting images demonstrate homogeneous tracer distribution throughout the myocardium in all segments. -Stress images demonstrate a small sized perfusion defect of hzia-fj-nzrunfjz intensity in the inferior wall. -Gated SPECT imaging reveals normal myocardial thickening and wall motion with normal left ventricular systolic function. Impression: -Myocardial perfusion imaging is abnormal with a small area of mild to moderate ischemia in the inferior wall. -Wall motion is normal. -LV systolic function is normal. -No prior studies for comparison. MTDD
--- NOTE | 2019-11-05 13:18 | DRAGON STRESS TEST REPORT ---
The patient underwent pharmacological nuclear stress test with regadenoson following standard protocol. The heart rate was 75 beats per meter at baseline) to 109 bpm during regadenoson infusion. The resting blood pressure was 116/68 and increased to 135/73 which is a normal response. The patient developed symptoms of shortness of breath and chest discomfort during the infusion of regadenoson. The resting electrocardiogram demonstrated normal sinus rhythm. There were no ST changes during regadenoson infusion. Myocardial perfusion imaging was performed with technetium 99m sestamibi after the injection of 14.59 mCi. Stress imaging was performed using 45.3 mCi. -The overall quality of the study is good. -Raw images did not demonstrate any significant artifact. -Resting images demonstrate homogeneous tracer distribution throughout the myocardium in all segments. -Stress images demonstrate a small sized perfusion defect of ttga-an-xavrflgt intensity in the inferior wall. -Gated SPECT imaging reveals normal myocardial thickening and wall motion with normal left ventricular systolic function. Impression: -Myocardial perfusion imaging is abnormal with a small area of mild to moderate ischemia in the inferior wall. -Wall motion is normal. -LV systolic function is normal. -No prior studies for comparison. MTDD
== END ==
LOC: RAD 07:28
PROVIDERS: ATTEND Internal Medicine Cardiovascular Disease
DX: R94.31 Abnormal electrocardiogram [ECG] [EKG] (principal)
CPT/HCPCS: 93017; 78452; A9500; J2785; Q9969

== ENCOUNTER → 2020-04-22 | Outpatient (CLI) | payer MEDICAID ==
--- NOTE | 2020-04-22 15:14 | RADIOLOGY REPORT (SQ) ---
EXAM DESCRIPTION: CERV SP 3 VIEW OR LESS IMAGES COMPLETED DATE/TIME: 04/22/2020 1:46 pm REASON FOR STUDY: CERVICAL RADICULOPATHY COMPARISON: None. TECHNIQUE: Lateral flexion and extension radiographs of the spine. NUMBER OF VIEWS: Two views. LIMITATIONS: None. FINDINGS: Normal alignment, maintained throughout flexion and extension. No abnormal motion. OTHER: ACDF from C3-C7 with screws into the vertebral bodies and disc space implants. IMPRESSION: Prior ACDF. No instability on flexion/extension. TECHNICAL DOCUMENTATION: JOB ID: [id number] 2010 [employer]- All Rights Reserved Reading location - IP/workstation name: [email or web address]
== END ==
LOC: RAD 13:19
PROVIDERS: ATTEND Specialist
DX: M54.12 Radiculopathy, cervical region (principal)
CPT/HCPCS: 72040

== ENCOUNTER → 2020-05-10 | Outpatient (CLI) | payer MEDICAID ==
--- NOTE | 2020-05-10 12:23 | RADIOLOGY REPORT (SQ) ---
EXAM DESCRIPTION: CERV SP 4 OR 5 VIEWS IMAGES COMPLETED DATE/TIME: 05/10/2020 11:38 am REASON FOR STUDY: CERVICAL RADICULOPATHY COMPARISON: None. NUMBER OF VIEWS: Five views. TECHNIQUE: AP and swimmer's lateral views were obtained. Lateral views were obtained in neutral, fl exion, and extension. LIMITATIONS: None. FINDINGS: MINERALIZATION: Normal. ALIGNMENT: Anatomic. VERTEBRAE: Vertebral bodies of normal height. DISCS: Disc implants are present from C3-C7. FLEXION/EXTENSION: No instability is seen. LATERAL AND POSTERIOR ELEMENTS: Facets, lateral masses and spinous processes without significant find ings. HARDWARE: There is an anterior plate from C3-C7 with screws into the vertebral bodies and disc implan ts. SOFT TISSUES: No masses or calcifications. Lung apices clear. OTHER: No other significant finding. IMPRESSION: ACDF. No instability on flexion/ extension. TECHNICAL DOCUMENTATION: JOB ID: [id number] 2010 [employer]- All Rights Reserved Reading location - IP/workstation name: [email or web address]
== END ==
LOC: RAD 11:13
PROVIDERS: ATTEND Specialist
DX: M54.12 Radiculopathy, cervical region (principal)
CPT/HCPCS: 72050

== ENCOUNTER → 2020-06-24 | Outpatient (CLI) | payer MEDICAID ==
--- NOTE | 2020-06-24 12:47 | RADIOLOGY REPORT (SQ) ---
EXAM DESCRIPTION: L SPINE WHOLE IMAGES COMPLETED DATE/TIME: 06/24/2020 12:34 pm REASON FOR STUDY: M54.16 RADICULOPATHY, LUMBAR REGION M54.16 RADICULOPATHY, LUMBAR REGION COMPARISON: 07/02/2015 NUMBER OF VIEWS: Five views including obliques. TECHNIQUE: AP, lateral, oblique, and sacral radiographic images acquired of the lumbar spine. LIMITATIONS: None. FINDINGS: MINERALIZATION: Normal. SEGMENTATION: Normal. No transitional anatomy. ALIGNMENT: Normal. VERTEBRAE: Mild anterior wedging of L1 stable from prior study. DISCS: Mild disc space narrowing at L5-S1 also unchanged. POSTERIOR ELEMENTS: Pedicles and facets are intact. No pars defect or posterior arch defects. HARDWARE: None in the spine. PARASPINAL SOFT TISSUES: Normal. PELVIS: Intact as visualized. No fractures or worrisome bone lesions. SI joints intact. OTHER: No other significant finding. IMPRESSION: No acute findings in the lumbar spine. Stable mild wedging of L1 anteriorly. Disc spac e narrowing at L5-S1. TECHNICAL DOCUMENTATION: JOB ID: [id number] [email or web address]- All Rights Reserved Reading location - IP/workstation name: [email or web address]
== END ==
LOC: RAD 12:13
PROVIDERS: ATTEND Physician Assistant Medical
DX: M54.16 Radiculopathy, lumbar region (principal)
CPT/HCPCS: 72110

== ENCOUNTER 2020-06-30 10:45 | Emergency (ER) | payer MEDICAID ==
--- NOTE | 2020-06-30 10:55 | ER Document Report ---
ED Medical Screen (RME) - General Chief Complaint: Abdominal Pain Stated Complaint: COUGHING BLOOD/ABDOMINAL PAIN Time Seen by Provider: 06/30/20 10:49 Primary Care Provider: NITA CINTRON MD [Primary Care Provider] - Follow up as needed Mode of Arrival: Ambulatory Information source: Patient Notes: 34-year-old male presented to ED for complaint of coughing multiple x2 days ago then he got sick and vomited after he vomited he coughed up blood. He states he did the cough and then threw up and had a coughing up blood again yesterday. He states each time it is after he ate. He denies any fever or diarrhea. States he quit smoking cigarettes 2 years ago. The first night was a mild chili and last night it was pizza nuggets and bagel bites. We will get blood urine. We will also get x-ray. States his gallbladder was removed in 2008. He states he does have a history of ulcers. He also has reflux. I have greeted and performed a rapid initial assessment of this patient. A comprehensive ED assessment and evaluation of the patient, analysis of test results and completion of medical decision making process will be conducted by an additional ED providers. TRAVEL OUTSIDE OF THE [place] IN LAST 30 DAYS: No - Related Data Allergies/Adverse Reactions: ketorolac tromethamine [From Toradol] Allergy (Verified 06/30/20 10:50) sulfamethoxazole [From Bactrim] Allergy (Verified 06/30/20 10:50) tramadol [Tramadol] Allergy (Verified 06/30/20 10:50) trimethoprim [From Bactrim] Allergy (Verified 06/30/20 10:50) methocarbamol [From Robaxin] Adverse Reaction (Verified 06/30/20 10:50) Hives Past Medical History - General Information source: Patient - Social History Cigarette use (# per day): No - Former Frequency of alcohol use: Rare Drug Abuse: Marijuana Lives with: Spouse/Significant other Family history: Reviewed & Not Pertinent - Past Medical History Cardiac Medical History: Reports: Hx Coronary Artery Disease, Hx DVT - Multiple; last 2014. Took himself off his systemic anticoagulant., Hx Heart Attack - September 2014. Denies: Hx Hypercholesterolemia, Hx Pulmonary Embolism Pulmonary Medical History: Reports: Hx Asthma, Hx COPD, Hx Pneumonia Neurological Medical History: Reports: Hx Cerebrovascular Accident Endocrine Medical History: Reports: None Renal/ Medical History: Reports: Hx Kidney Stones Malignancy Medical History: Reports None GI Medical History: Reports: Hx Gastroesophageal Reflux Disease, Hx Ulcer Musculoskeltal Medical History: Reports Hx Arthritis, Reports Hx Musculoskeletal Deformity, Reports Hx Musculoskeletal Trauma Skin Medical History: Reports None Psychiatric Medical History: Reports: Hx Anxiety Infectious Medical History: Denies: Hx Hepatitis Past Surgical History: Reports: Hx Cholecystectomy, Hx Kidney (Renal Surgery) - Due to kidney stones, Hx Oral Surgery - Dental surgery, Hx Orthopedic Surgery - Knee meniscus and toe nail - Immunizations Hx Diphtheria, Pertussis, Tetanus Vaccination: No Doctor's Discharge - Discharge Referrals: NITA CINTRON MD [Primary Care Provider] - Follow up as needed
[2020-06-30 12:29] LABS: ABSOLUTE BASOPHILS # (AUTO) 0.1 10^3/uL (0.0-0.2); ABSOLUTE EOSINOPHILS # (AUTO) 0.6 10^3/uL (0.0-0.6); ABSOLUTE LYMPHOCYTES (AUTO) 1.2 10^3/uL (0.5-4.7); ABSOLUTE MONOCYTES (AUTO) 0.7 10^3/uL (0.1-1.4); ABSOLUTE NEUT (AUTO) 7.9 10^3/uL (1.7-8.2); BASOPHILS % (AUTO) 0.7 % (0-2); EOSINOPHILS % (AUTO) 5.4 % (0-6); HEMATOCRIT 41.4 % (37.9-51.0); HEMOGLOBIN 14.7 g/dL (13.5-17.0); LYMPHOCYTES % (AUTO) 11.8 % (13-45); MEAN CORPUSCULAR HEMOGLOBIN 32.2 pg (27.0-33.4); MEAN CORPUSCULAR HGB CONC 35.5 g/dL (32.0-36.0); MEAN CORPUSCULAR VOLUME 91 fl (80-97); PLATELET COUNT 484 10^3/uL (150-450); RED BLOOD COUNT 4.57 10^6/uL (4.35-5.55); RED CELL DISTRIBUTION WIDTH 13.4 % (11.5-14.0); SEGMENTED NEUTROPHILS % (AUTO) 75.1 % (42-78); TOTAL CELLS COUNTED % (AUTO) 100 %; WHITE BLOOD COUNT 10.5 10^3/uL (4.0-10.5)
[2020-06-30 12:34] LABS: INTERNATIONAL RATION (INR) 0.91; PROTHROMBIN TIME 12.5 SEC (11.4-15.4)
[2020-06-30 12:45] LABS: ALBUMIN 4.1 g/dL (3.5-5.0); ALKALINE PHOSPHATASE 83 U/L (38-126); ANION GAP 9 (5-19); ASPARTATE AMINO TRANSFERASE 16 U/L (17-59); BILIRUBIN,TOTAL 0.3 mg/dL (0.2-1.3); BLOOD UREA NITROGEN 10 mg/dL (7-20); CALCIUM 9.8 mg/dL (8.4-10.2); CARBON DIOXIDE 27 mmol/L (22-30); CHLORIDE 104 mmol/L (98-107); GLUCOSE 91 mg/dL (75-110); POTASSIUM 4.2 mmol/L (3.6-5.0); TOTAL PROTEIN 6.9 g/dL (6.3-8.2)
--- NOTE | 2020-06-30 12:58 | RADIOLOGY REPORT (SQ) ---
EXAM DESCRIPTION: CHEST SINGLE VIEW IMAGES COMPLETED DATE/TIME: 06/30/2020 12:34 pm REASON FOR STUDY: Hemoptysis, coughing COMPARISON: 08/22/2019 EXAM PARAMETERS: NUMBER OF VIEWS: One view. TECHNIQUE: Single frontal radiographic view of the chest acquired. RADIATION DOSE: NA LIMITATIONS: Apical lordotic patient positioning. FINDINGS: LUNGS AND PLEURA: No opacities, masses or pneumothorax. No pleural effusion. MEDIASTINUM AND HILAR STRUCTURES: No masses. Contour normal. HEART AND VASCULAR STRUCTURES: Heart normal in size. Normal vasculature. BONES: No acute findings. HARDWARE: Partially imaged cervical ACDF hardware. OTHER: No other significant finding. IMPRESSION: No evidence of acute cardiopulmonary abnormality. TECHNICAL DOCUMENTATION: JOB ID: [id number] 2010 [employer]- All Rights Reserved Reading location - IP/workstation name: [email or web address]
[2020-06-30] MEDS ORDERED: MAG HYDROX/AL HYDROX/SIMETH SUSP 30 ML UDCUP PO ONE (13:44)
[2020-06-30] MEDS ORDERED: LIDOCAINE 2% VISCOUS SOLN 15 ML UDCUP PO ONE (13:44)
[2020-06-30] MEDS ORDERED: METOCLOPRAMIDE HCL ORAL SOLN 10 MG/10 ML UDCUP PO ONE (13:44)
--- NOTE | 2020-06-30 14:11 | ER Document Report ---
ED General - General Chief Complaint: Abdominal Pain Stated Complaint: COUGHING BLOOD/ABDOMINAL PAIN Time Seen by Provider: 06/30/20 10:49 Primary Care Provider: CHARY NGUYEN MD [ACTIVE STAFF] - Follow up in 3-5 days HENRY AYALA MD [ACTIVE STAFF] - Follow up in 3-5 days NITA LOVE MD [ACTIVE PROVISIONAL STAFF] - Follow up in 3-5 days Mode of Arrival: Ambulatory Information source: Patient TRAVEL OUTSIDE OF THE [place] IN LAST 30 DAYS: No - HPI Notes: 34-year-old male with a history of (5) DVT's in the past and actively on Coumadin, hx of NC, GERD of presents to the emergency room today with complaints of hemoptysis with coughing that started 2 nights ago as well as left lower quadrant abdominal pain. Patient denies any trauma. Patient wanted to be evaluated for his cough which is bringing up some blood. Patient states he takes 4 mg of Coumadin daily. Is unsure when his last INR was. Patient states that he does have some acid reflux, he is taking [id number] Zantac, started the other day to see if this would help him. Reports he does have some left lower quadrant abdominal pain that comes and goes. Reports his last bowel movement was yesterday, denies any black tarry stool. Reports he does have a history of peptic ulcers that was diagnosed in 2008, he is not on a PPI right now. Patient states he ate chili 2 days ago and yesterday he ate [employer], he is unsure if this is causing his abdominal pain. Ate breakfast without any issues. Patient is mostly concerned because he is on Coumadin and he is coughing up some blood. 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 Love, at [facility]. Patient did have a cholecystectomy in 2008 with a history of a peptic ulcer in 2008 as well. He does have a history of COPD. denies fevers, chills, chest pain,palpitations, shortness of breath, dyspnea, nausea, vomiting, diarrhea, hematuria,blurred vision, double vision, loss of vision, speech changes, LH, dizziness, syncope, headaches, wheezing, ST, URI, neck pain, weakness, bowel or bladder dysfunction, saddle anesthesia, numbness or tingling in bilateral upper or lower extremities equally, muscle paralysis, weakness in bilateral upper or lower extremities equally or rash. Denies IV drug use. - Related Data Allergies/Adverse Reactions: ketorolac tromethamine [From Toradol] Allergy (Verified 06/30/20 10:50) sulfamethoxazole [From Bactrim] Allergy (Verified 06/30/20 10:50) tramadol [Tramadol] Allergy (Verified 06/30/20 10:50) trimethoprim [From Bactrim] Allergy (Verified 06/30/20 10:50) methocarbamol [From Robaxin] Adverse Reaction (Verified 06/30/20 10:50) Hives Past Medical History - General Information source: Patient - Social History Smoking Status: Former Smoker Cigarette use (# per day): No - Former Chew tobacco use (# tins/day): No Frequency of alcohol use: Rare Drug Abuse: Marijuana Lives with: Spouse/Significant other Family History: Reviewed & Not Pertinent - Past Medical History Cardiac Medical History: Reports: Hx Coronary Artery Disease, Hx DVT - Multiple; last 2014. Took himself off his systemic anticoagulant., Hx Heart Attack - September 2014. Denies: Hx Hypercholesterolemia, Hx Pulmonary Embolism Pulmonary Medical History: Reports: Hx Asthma, Hx COPD, Hx Pneumonia Neurological Medical History: Reports: Hx Cerebrovascular Accident Endocrine Medical History: Reports: None Renal/ Medical History: Reports: Hx Kidney Stones Malignancy Medical History: Reports None GI Medical History: Reports: Hx Gastroesophageal Reflux Disease, Hx Ulcer. Denies: Hx Hepatitis Musculoskeletal Medical History: Reports Hx Arthritis, Reports Hx Musculoskele fredi Deformity, Reports Hx Musculoskeletal Trauma Skin Medical History: Reports None Psychiatric Medical History: Reports: Hx Anxiety Infectious Medical History: Denies: Hx Hepatitis Past Surgical History: Reports: Hx Cholecystectomy, Hx Kidney (Renal Surgery) - Due to kidney stones, Hx Oral Surgery - Dental surgery, Hx Orthopedic Surgery - Knee meniscus and toe nail - Immunizations Hx Diphtheria, Pertussis, Tetanus Vaccination: No Review of Systems - Review of Systems Constitutional: No symptoms reported EENT: No symptoms reported Cardiovascular: No symptoms reported Respiratory: No symptoms reported Gastrointestinal: See HPI Genitourinary: No symptoms reported Male Genitourinary: No symptoms reported Musculoskeletal: No symptoms reported Skin: No symptoms reported Hematologic/Lymphatic: No symptoms reported Neurological/Psychological: No symptoms reported Physical Exam - Vital signs Vitals: Temp Pulse Resp BP Pulse Ox 98.7 F 83 18 153/88 H 92 06/30/20 10:52 06/30/20 10:52 06/30/20 10:52 06/30/20 10:52 06/30/20 10:52 - Notes Notes: MEDICATIONS: I agree with the patient medications as charted by the RN. ALLERGIES: I agree with the allergies as charted by the RN. PAST MEDICAL HISTORY/PAST SURGICAL HISTORY: Reviewed and agree as charted by RN. SOCIAL HISTORY: Reviewed and agree as charted by RN. FAMILY HISTORY: No significant familial comorbid conditions directly related to patient complaint EXAM: Reviewed vital signs as charted by RN. PHYSICAL EXAMINATION:reviewed vital signs by RN GENERAL: Well-appearing, well-nourished and in no acute distress. HEAD: Atraumatic, normocephalic. EYES: Pupils equal round and reactive to light, extraocular movements intact, sclera anicteric, conjunctiva are normal. ENT: Nares patent, oropharynx clear without exudates. Moist mucous membranes. NECK: Normal range of motion, supple without lymphadenopathy LUNGS: Breath sounds clear to auscultation bilaterally and equal. No wheezes rales or rhonchi. HEART: Regular rate and rhythm without murmurs ABDOMEN: Soft, tenderness to left lower quadrant on palpation nondistended abdomen. No guarding, no rebound. No masses appreciated. Musculoskeletal: Normal range of motion, no pitting or edema. No cyanosis. NEUROLOGICAL: Cranial nerves grossly intact. Normal speech, normal gait. No rmal sensory, motor exams PSYCH: Normal mood, normal affect. SKIN: Warm, Dry, normal turgor, no rashes or lesions noted. Course - Re-evaluation Re-evalutation: 06/30/20 16:18 Afebrile vital stable no distress. Nurses notes reviewed. CBC negative for leukocytosis or anemia, coags, INR 0.91, CMP negative for hepatic or renal dy sfunction, lipase is 151, urinalysis is unremarkable. Covid test is pending troponin less than 0.12, chest x-ray negative for any pneumonia, pneumothorax. EKG heart rate 83, no STEMI, no ST segment elevations. CTA of chest shows no PE, no dissection, no AAA no acute findings in the thorax, CT abdomen pelvis with IV and oral contrast shows no acute findings but does show some uncomplicated inguinal hernias. Patient did get into contact with his primary care provider and is going to have a INR recheck on July 04, he made the appointment while in the emergency room. Consulted with Dr. William Grayson, our supervising physician at 1600 regarding pertinent laboratory diagnostic and clinical findings. Considering patient's history of COPD with being on Coumadin to cover patient with antibiotic and steroids and have patient follow-up with primary care provider and work manager within the next 24 to 48 hours. We will start patient on omeprazole 20 mg twice daily as well as starting patient on Augmentin to cover for any potentiality for diverticulitis that did not show up on CT scan. Patient is admittedly "horrible with going to the doctors and following up with the doctors". I was present when the patient did make his appointment with the primary care doctor, zack moya in [facility] for an INR check. Discussed with patient at length that he does need to return to the emergency room if he experiences any worsening symptoms of his abdominal pain, any worsening issues with coughing or coughing up blood and the fact that his INR is only 0.91 means that he does need to increase his Coumadin. We did discuss at length to the interactions that can happen with taking the medications that I prescribed as it can cause his INR to go up as well, this is why he is getting it rechecked on 04 July and it was explicitly told to return to the emergency room if he has any worsening symptoms. Patient verbalized an understanding of this plan of care and agreed with plan of care. After performing a Medical Screening Examination, I estimate there is LOW risk for RUPTURED ESOPHAGUS, PNEUMOTHORAX, PULMONARY EMBOLISM, ACUTE CORONARY SYNDROME, OR THORACIC AORTIC DISSECTION, thus I consider the discharge disposition reasonable. I have reevaluated this patient multiple times and no significant life threatening changes are noted. The patient and I have discussed the diagnosis and risks, and we agree with discharging home with close follow- up. We also discussed returning to the Emergency Department immediately if new or worsening symptoms occur. We have discussed the symptoms which are most concerning (e.g., bloody sputum, worsening pain or shortness of breath) that necessitate immediate return. 06/30/20 19:27 - Vital Signs Vital signs: Temp Pulse Resp BP Pulse Ox 98.2 F 90 20 129/82 H 97 06/30/20 16:03 06/30/20 16:03 06/30/20 16:03 06/30/20 16:03 06/30/20 16:03 - Laboratory Result Diagrams: 06/30/20 12:11 06/30/20 12:11 Laboratory results interpreted by me: 06/30/20 06/30/20 12:11 12:11 Plt Count 484 H Lymph % (Auto) 11.8 L AST 16 L - EKG Interpretation by Me EKG shows normal: Sinus rhythm Rate: Normal Rhythm: NSR Discharge - Discharge Clinical Impression: Cough, Abdominal pain, small uncomplicated inguinal hernias Condition: Stable Disposition: HOME, SELF-CARE Instructions: Abdominal Pain ([facility]), Coumadin (warfarin) ([facility]), Upper Respiratory Illness ([facility]) Additional Instructions: Your CT of your abdomen and pelvis was negative for any acute infection, masses or findings, CTA of your chest did not show for any blood clots, dissection or bleeding. Your INR today was 0.91. Your INR is likely too low, you may need to increase your Coumadin from 4 mg a day to possibly 5 mg every other day and have a repeat INR done in 48 hours . it is recommended that you have your INR checked again in 2 days by your primary care provider. We will start you on antibiotic therapy, as well as prednisone, please take medications as directed. Coumadin is known to have a significant amount of interactions with majority of medi cations, this is why you need to have your INR checked again within 48 hours. please follow-up with work manager, vegetable specker and glass unloading equipment tender as well as your primary care provider. If you experience any worsening symptoms, please return to the emergency room immediately such as worsening hemoptysis, chest pain, shortness of breath, worsening abdominal pain, vomiting etc. Return immediately for any new or worsening symptoms. Follow up with primary care provider, call tomorrow to make followup appointment. Prescriptions: Albuterol Sulfate [Proair Respiclick] 90 mcg IH Q4HP PRN #1 [id number] PRN Reason: Amoxicillin/Potassium Clav [Augmentin 875-125 Tablet] 1 tab PO BID #20 tab Prednisone [Deltasone 20 mg Tablet] 3 tab PO DAILY 5 Days #15 tablet Doxycycline Monohydrate 100 mg PO BID #20 tablet Omeprazole 20 mg PO BID #40 capsule.dr Forms: Return to Work Referrals: CURSEEN,CHARY, MD [ACTIVE STAFF] - Follow up in 3-5 days HENRY AYALA MD [ACTIVE STAFF] - Follow up in 3-5 days NITA LOVE MD [ACTIVE PROVISIONAL STAFF] - Follow up in 3-5 days KRISTI HANKS MD [ACTIVE STAFF] - Follow up as needed
[2020-06-30 14:23] LABS: APPEARANCE,URINE SLIGHTLY-CLOUDY; BILIRUBIN,URINE NEGATIVE (NEGATIVE); CALCIUM OXALATE CRYSTALS,URINE RARE /HPF; COLOR,URINE YELLOW; GLUCOSE, URINE NEGATIVE (NEGATIVE); KETONES,URINE NEGATIVE (NEGATIVE); LEUKOCYTE ESTERASE,URINE NEGATIVE (NEGATIVE); NITRITE,URINE NEGATIVE (NEGATIVE); PROTEIN,URINE NEGATIVE (NEGATIVE); URINE SPECIFIC GRAVITY 1.023; UROBILINOGEN,URINE NEGATIVE mg/dL (<2.0)
--- NOTE | 2020-06-30 15:32 | RADIOLOGY REPORT (SQ) ---
EXAM DESCRIPTION: CTA CHEST IMAGES COMPLETED DATE/TIME: 06/30/2020 3:04 pm REASON FOR STUDY: Hemoptysis, on Coumadin, history of PEs, SOB COMPARISON: 12/03/2016 TECHNIQUE: CT scan of the chest performed using helical scanning technique with dynamic intravenous contrast injection. Images reviewed with lung, soft tissue and bone windows. Reconstructed coronal and sagittal MPR images reviewed. Additional 3 dimensional post-processing performed to develop Maximal Intensity Projection images ([place] P). All images stored on PACS. All CT scanners at this facility use dose modulation, iterative reconstruction, and/or weight based d osing when appropriate to reduce radiation dose to as low as reasonably achievable (ALARA). [facility]: Dose Right [facility]: CareDose [facility]: Dose Right [facility]: Teradose 4D [facility]: XYZE CONTRAST TYPE AND DOSE: 94 mL Omnipaque 350- low osmolar. Contrast bolus adequate for pulmonary arteries and aorta. RENAL FUNCTION: BUN 10 creatinine 0.83 RADIATION DOSE: CT Rad equipment meets quality standard of care and radiation dose reduction techniq ues were employed. CTDIvol: 6.6 - 32.8 mGy. DLP: 4507 mGy-cm. . LIMITATIONS: None. FINDINGS: LUNGS AND PLEURA: No masses, infiltrates, or pneumothorax. No pleural effusions or pleura l calcifications. AORTA AND GREAT VESSELS: No aneurysm. No dissection. HEART: No pericardial effusion. No significant coronary artery calcifications. PULMONARY ARTERIES: No emboli visualized in the main pulmonary arteries or the segmental branches. HILAR AND MEDIASTINAL STRUCTURES: No identified masses or abnormal nodes. HARDWARE: None in the chest. UPPER ABDOMEN: No significant findings. Limited exam. THYROID AND OTHER SOFT TISSUES: No masses. No adenopathy. BONES: No acute or significant finding. 3D MIPS: Confirm above findings. OTHER: No other significant finding. IMPRESSION: There is no pulmonary embolus. There is no aortic aneurysm or dissection. No acute fin dings in the thorax. COMMENT: Quality ID # [id number]: Final reports with documentation of one or more dose reduction techniques (e.g., Automated exposure control, adjustment of the mA and/or kV according to patient size, use of iterative reconstruction technique) TECHNICAL DOCUMENTATION: JOB ID: [id number] 2010 [employer]- All Rights Reserved Reading location - IP/workstation name: [email or web address]
--- NOTE | 2020-06-30 15:39 | RADIOLOGY REPORT (SQ) ---
EXAM DESCRIPTION: CT ABD/PELVIS WITH IV ORAL IMAGES COMPLETED DATE/TIME: 06/30/2020 3:04 pm REASON FOR STUDY: LLQ abd pain x 3 days COMPARISON: 2014 TECHNIQUE: CT scan of the abdomen and pelvis performed using helical scanning technique with dynamic intravenous contrast injection. Oral contrast. Images reviewed with lung, soft tissue, and bone win dows. Reconstructed coronal and sagittal MPR images reviewed. Delayed images for evaluation of the ur inary system also acquired. All images stored on PACS. All CT scanners at this facility use dose modulation, iterative reconstruction, and/or weight based d osing when appropriate to reduce radiation dose to as low as reasonably achievable (ALARA). [facility]: Dose Right [facility]: CareDose [facility]: Dose Right [facility]: Teradose 4D [facility]: Airware CONTRAST TYPE AND DOSE: contrast/concentration: Isovue 350.00 mmol/ml; Total Contrast Delivered: 94. 0 ml; Total Saline Delivered: 70.0 ml RENAL FUNCTION: BUN 10 creatinine 0.83 RADIATION DOSE: . LIMITATIONS: None. FINDINGS: LOWER CHEST: See separate report of the CT of the chest. LIVER: Normal size. No masses. No dilated ducts. SPLEEN: Normal size. No focal lesions. PANCREAS: No masses. No significant calcifications. No adjacent inflammation or peripancreatic fluid collections. Pancreatic duct not dilated. GALLBLADDER: No identified stones by CT criteria. No inflammatory changes to suggest cholecystitis. ADRENAL GLANDS: No significant masses or asymmetry. RIGHT KIDNEY AND URETER: No solid masses. No significant calcifications. No hydronephrosis or hyd roureter. LEFT KIDNEY AND URETER: No solid masses. No significant calcifications. No hydronephrosis or hydr oureter. AORTA AND VESSELS: No aneurysm. No dissection. Renal arteries, SMA, celiac without stenosis. RETROPERITONEUM: No retroperitoneal adenopathy, hemorrhage or masses. BOWEL AND PERITONEAL CAVITY: No masses or inflammatory changes. No free fluid or peritoneal masses. APPENDIX: Normal. PELVIS: No mass. No free fluid. Normal bladder. ABDOMINAL WALL: Small uncomplicated inguinal hernias. BONES: No significant or acute findings. OTHER: No other significant finding. IMPRESSION: No acute findings in the abdomen or pelvis. There are small uncomplicated inguinal salo ias. TECHNICAL DOCUMENTATION: JOB ID: [id number] Quality ID # [id number]: Final reports with documentation of one or more dose reduction techniques (e.g., Au tomated exposure control, adjustment of the mA and/or kV according to patient size, use of iterative reconstruction technique) 2010 [employer]- All Rights Reserved Reading location - IP/workstation name: [email or web address]
[2020-06-30 16:04] VITALS: BP 129/82
--- NOTE | 2020-06-30 18:06 | EKG REPORT ---
SEVERITY:- BORDERLINE ECG - SINUS RHYTHM BORDERLINE T ABNORMALITIES, INFERIOR LEADS : Confirmed by: Miki Beck MD 30-Jun-2020 18:05:41
== END 2020-06-30 16:45 | disposition home or self-care (01) ==
LOC: ER 10:45
DX: K40.90 Unilateral inguinal hernia, without obstruction or gangrene, not specified as recurrent (principal); R05 Cough; R10.9 Unspecified abdominal pain; Z79.01 Long term (current) use of anticoagulants; I25.2 Old myocardial infarction; K21.9 Gastro-esophageal reflux disease without esophagitis; R10.32 Left lower quadrant pain; Z87.891 Personal history of nicotine dependence; I25.10 Atherosclerotic heart disease of native coronary artery without angina pectoris; J44.9 Chronic obstructive pulmonary disease, unspecified; Z20.828 Contact with and (suspected) exposure to other viral communicable diseases
CPT/HCPCS: 93005; 99285; 36415; 83690; 85025; 85610; 85730; 87635; 80053; 81001; 84484; 71045; 71275; 74177; 93010; J3490 ×3; C9803